=== PATIENT | female | born 1970 | race Caucasian/White ===

== ENCOUNTER 2018-01-02 01:27 | Outpatient (CLI) | payer MEDICARE, MEDICAID, SELFPAY ==
--- NOTE | 2018-01-02 12:51 | DI.RAD_ITS ---
SYMPTOM/DIAGNOSIS: RT KNEE PAIN, M25.561 RIGHT KNEE: Comparison is made with 12/30/15. There is moderate narrowing of the medial femoral tibial joint space and periarticular spurring. Spurring is also seen laterally and at the tibial spines. Patellofemoral spurring is also seen. IMPRESSION: Degenerative changes greatest at the medial femoral tibial joint.
== END 2018-01-02 01:47 ==
PROVIDERS: PCP Nurse Practitioner; Visit Provider Nurse Practitioner
DX: M25.561 Pain in right knee (principal); M17.11 Unilateral primary osteoarthritis, right knee
CPT/HCPCS: 73562

== ENCOUNTER 2018-02-10 13:18 | Emergency (ER) | payer MEDICARE, MEDICAID, SELFPAY ==
--- NOTE | 2018-02-10 13:28 | NUR.NOTE ---
MD Callahan at the bedside.
[2018-02-10 13:29] VITALS: BP 169/113; PULSE 89; RESP 18; TEMP 36.6; O2SAT 100
--- NOTE | 2018-02-10 13:35 | W.ED.GENAD ---
Discharge Plan Disposition Patient Disposition: HOME Condition: Stable Discharge Details Chief Complaint: PsychEval Clinical Impression: Depression Primary Care Provider: Renetta Bella ED Provider: Gardenia Callahan Home Meds and New Rx's Prescriptions: Continue bupropion HCl [Wellbutrin SR] 150 MG tablet extended release 12 hr 300 mg PO DAILY RF: 0 trazodone 100 MG tablet 200 mg PO HS RF: 0 hydrocodone-acetaminophen [[place]] 1 EACH tablet 1 ea PO Q6H PRN PRNRF: 0 albuterol sulfate [ProAir HFA] 200 PUFF HFA aerosol inhaler 2 puff Inhalation Q4H PRN PRNRF: 0 duloxetine [Cymbalta] 30 MG capsule,delayed release(DR/EC) 30 mg PO DAILY RF: 0 duloxetine [Cymbalta] 60 MG capsule,delayed release(DR/EC) 60 mg PO DAILY RF: 0 lamotrigine 250 MG tablet extended release 24hr 300 mg PO DAILY RF: 0 acetaminophen [Tylenol Extra Strength] 500 MG tablet 500 mg PO PRN PRNRF: 0 epinephrine [EpiPen 2-Mikhail] 0.3 MG/0.3 ML auto-injector 0.3 mg IM Q6H PRN PRNQty: 6 RF: 10 cyclobenzaprine 10 MG tablet 10 mg PO TID PRN PRNQty: 10 RF: 0 Discharge Instructions Instructions: Depression (ED) Additional Instructions: Take your regular medications as directed. Follow-up with your scheduled appointment with your therapist tomorrow. Follow-up immediately with Maylin from mental health with any questions or concerns. Call 911 or return immediately to the emergency department with any worsening or new concerning symptoms. Discharge Data Discharge Date/Time-TO BE ENTERED AT DEPARTURE: 02/10/18 16:21 Discharge Physician: Gardneia Callahan Medical Decision Making 47yo F w/ a h/o anxiety, depression and previous suicide attempts who presents with suicidal ideation with plan to swallow pills after argument with partner last night. BP hypertensive, no h/o HTN, may be due to pt distress, will recheck. No acute findings on exam. Will check screening labs, uds, ucg and call mental health and sitter. 1600 -- labs reviewed and unremarkable. UDS positive for THC. Vitals within normal limits. Mental health evaluated patient at bedside and partner is now here and patient and partner feel good to go home. Patient is denying any suicidal ideation. She states she felt emotional after her argument but has no intentions to harm or kill herself. She denies any weapons at home. She states she has no intent or plan to harm herself. Patient and partner state they feel safe to go home. Discussed with mental health and they state that patient has a dissociative disorder and when she has a trigger such as an argument this may cause her to regress back to past feelings. Pt appears calm and relaxed and is smiling with partner at bedside. Pt has an appointment with her psychotherapist Jennifer Martinez tomorrow. Pt has contact information for Maylin from [facility] if she needs urgent evaluation. She is instructed to call 911 or return immediately to the ER with any worsening or return of symptoms. HPI General Mode of arrival: ambulatory. Date/Time Provider Initiated Documentation: 02/10/18 13:20. Limitations to Documentation: no limitations. Information obtained by: patient. HPI Narrative: Pt is a 47yo F who presents to the ED w/ suicidal ideation. Pt states she had an argument last night and states her partner said hurtful things to me which caused her to want to swallow a bunch of pills today to kill herself. Pt admits to 2 previous suicide attempts at age 9 and in the 20s with previous intentional pill overdose. Pt denies any alcohol or drug use. Pt states she otherwise has been eating and drinking well. Related Data Home Medications Medication Instructions Recorded Confirmed albuterol sulfate [ProAir HFA] 2 puff INHALATION Q4H PRN PRN 07/23/15 02/10/18 bupropion HCl [Wellbutrin SR] 300 mg PO DAILY 07/23/15 02/10/18 duloxetine [Cymbalta] 30 mg PO DAILY 07/23/15 02/10/18 duloxetine [Cymbalta] 60 mg PO DAILY 07/23/15 02/10/18 hydrocodone-acetaminophen [[place]] 1 ea PO Q6H PRN PRN 07/23/15 02/10/18 lamotrigine 300 mg PO DAILY 07/23/15 02/10/18 trazodone 200 mg PO HS 07/23/15 02/10/18 acetaminophen [Tylenol Extra 500 mg PO PRN PRN 07/27/15 02/10/18 Strength] epinephrine [EpiPen 2-Mikhail] 0.3 mg IM Q6H PRN PRN #6 ml 09/26/15 02/10/18 cyclobenzaprine 10 mg PO TID PRN PRN #10 tab 01/13/16 02/10/18 Previous Rx's Medication Instructions Recorded epinephrine [EpiPen 2-Mikhail] 0.3 mg IM Q6H PRN PRN #6 ml 09/26/15 cyclobenzaprine 10 mg PO TID PRN PRN #10 tab 01/13/16 Allergies Allergy/AdvReac Type Severity Reaction Status Date / Time venom-honey bee Allergy Severe Anaphylaxsi Unverified 02/10/18 13:30 s naproxen [From Naprosyn] Allergy Unknown Unverified 02/10/18 13:30 aspirin Allergy Unverified 02/10/18 13:30 General Stated Complaint: PsychEval ABDOUL: 2 Review of Systems Review of Systems All systems reviewed & are unremarkable except as noted in HPI and below Constitutional Reports as per HPI, Denies chills and Denies fever(s) Eyes Denies blurry vision ENT Denies dizziness, Denies sore throat and Denies throat swelling Cardiovascular Denies chest pain and Denies dyspnea Respiratory Denies dyspnea Gastrointestinal Denies abdominal pain, Denies diarrhea and Denies vomiting Genitourinary Denies hematuria and Denies dysuria Musculoskeletal Denies back pain and Denies numbness Integumentary/Breasts Denies lesions and Denies rash Neurologic Denies dizziness and Denies numbness Psychiatric Denies auditory hallucinations, Denies visual hallucinations and Reports suicidal ideation Allergic/Immunologic Denies throat swelling [facility] Social History Smoking/Tobacco Use Status: Former Tobacco Use Social History Smoking/Tobacco Use Status: Former Tobacco Use Exam Const General: cooperative, healthy appearing and other (tearful, crying) Orientation: alert, awake and oriented x3 HENMT Head: normal to inspection Ears: hearing grossly normal bilaterally and external ears normal General nose exam: external nose normal Face and sinus: normal facial exam Mouth: oral mucosae normal Eyes General: appearance normal, both eyes and all related structures Eyelids: eyelids normal Pupils: PERRL EOM: EOM intact bilaterally Neck Neck: normal visual inspection Lymphatic: no lymphadenopathy noted Chest Chest: normal inspection of the chest Resp Effort & Inspection: normal respiratory effort and able to speak in complete sentences Auscultation: clear to auscultation bilaterally Cardio Rate: regular rate Rhythm: regular rhythm GI Inspection: normal to inspection Skin General skin exam: no rashes or lesions noted Neuro General: alert and awake Cognition: normal cognition Speech: speech normal Gait: normal gait Motor: muscle tone normal throughout Sensory Exam: no sensory deficits noted Extrem General: normal to inspection, full ROM and normal capillary refill Psych Appearance: grossly normal Mental Status: mental status grossly normal Speech and Movement: speech and movement normal Affect: sad Thought Process: normal Course Laboratory Tests Range/Units 02/10/18 02/10/18 02/10/18 13:45 13:45 13:45 WBC (4.4-10.8) k/cumm 9.11 RBC (4.00-5.20) m/cumm 4.35 Hgb (12.0-15.5) g/dL 13.3 Hct (36.0-46.0) % 39.8 MCV (80-95) fL 91.5 MCH (27.0-33.0) pg 30.6 MCHC (32.0-36.0) g/dL 33.4 RDW (11.7-14.6) % 13.2 Plt Count (130-400) x1000/uL 256 MPV (8.0-11.0) fL 11.6 H Immature Gran % 0.2 Neutrophils % 69.7 Lymphocytes % 21.0 Monocytes % 8.5 Eosinophils % 0.3 Basophils % 0.3 Absolute Neutrophils (1.2-6.7) k/cumm 6.35 Absolute Lymphocytes (1.2-3.4) k/cumm 1.91 Absolute Monocytes (0.11-0.7) k/cumm 0.77 H Absolute Eosinophils (0.0-0.7) k/cumm 0.03 Absolute Basophils (0.0-0.2) k/cumm 0.03 Sodium (136-145) mmol/L 138 Potassium (3.5-5.1) mmol/L 3.7 Chloride (98-107) mmol/L 101 Carbon Dioxide (21.0-32.0) mmol/L 25.3 Anion Gap (3-11) mmol/L 11.7 H BUN (7-18) mg/dL 12 Creatinine (0.55-1.02) mg/dL 0.76 Estimated GFR/1.73 m2 (mL/min/1.73m2) >= 60.00 Glucose (70-100) mg/dL 121 H Calcium (8.5-10.1) mg/dL 8.6 Urine Color (Yellow) Yellow Urine Clarity Clear Urine pH (5-8) 7.0 Ur Specific [place] (1.005-1.025) 1.010 Urine Protein (Negative) mg/dL Negative Urine Ketones (Negative) mg/dL Negative Urine Blood (Negative) Trace-intact H Urine Nitrite (Negative) Negative Urine Bilirubin (Negative) Negative Urine Urobilinogen (Up TO 0.2) EU/dL 0.2 Ur Leukocyte Esterase (Negative) Negative Urine RBC (0-2) 0-2 Urine WBC (0-5) HPF Negative Ur Epithelial Cells (Negative) HPF Many Urine Crystals (Negative) HPF Negative Urine Bacteria (Negative) HPF Few Urine Casts (Negative) LPF Negative Urine Mucus (Negative) Trace Ur Culture Indicated? No Urine Glucose (Negative) mg/dL Negative Urine Opiates Screen (Negative) Urine Methadone Screen (Negative) Ur Barbiturates Screen (Negative) Ur Tricyclics Screen (Negative) Ur Amphetamines Screen (Negative) U Benzodiazepines Scrn (Negative) Urine Cocaine Screen (Negative) Ur THC Screen (Negative) Ethyl Alcohol (<3) mg/dL < 3.0 Range/Units 02/10/18 13:45 WBC (4.4-10.8) k/cumm RBC (4.00-5.20) m/cumm Hgb (12.0-15.5) g/dL Hct (36.0-46.0) % MCV (80-95) fL MCH (27.0-33.0) pg MCHC (32.0-36.0) g/dL RDW (11.7-14.6) % Plt Count (130-400) x1000/uL MPV (8.0-11.0) fL Immature Gran % Neutrophils % Lymphocytes % Monocytes % Eosinophils % Basophils % Absolute Neutrophils (1.2-6.7) k/cumm Absolute Lymphocytes (1.2-3.4) k/cumm Absolute Monocytes (0.11-0.7) k/cumm Absolute Eosinophils (0.0-0.7) k/cumm Absolute Basophils (0.0-0.2) k/cumm Sodium (136-145) mmol/L Potassium (3.5-5.1) mmol/L Chloride (98-107) mmol/L Carbon Dioxide (21.0-32.0) mmol/L Anion Gap (3-11) mmol/L BUN (7-18) mg/dL Creatinine (0.55-1.02) mg/dL Estimated GFR/1.73 m2 (mL/min/1.73m2) Glucose (70-100) mg/dL Calcium (8.5-10.1) mg/dL Urine Color (Yellow) Urine Clarity Urine pH (5-8) Ur Specific [place] (1.005-1.025) Urine Protein (Negative) mg/dL Urine Ketones (Negative) mg/dL Urine Blood (Negative) Urine Nitrite (Negative) Urine Bilirubin (Negative) Urine Urobilinogen (Up TO 0.2) EU/dL Ur Leukocyte Esterase (Negative) Urine RBC (0-2) Urine WBC (0-5) HPF Ur Epithelial Cells (Negative) HPF Urine Crystals (Negative) HPF Urine Bacteria (Negative) HPF Urine Casts (Negative) LPF Urine Mucus (Negative) Ur Culture Indicated? Urine Glucose (Negative) mg/dL Urine Opiates Screen (Negative) Negative Urine Methadone Screen (Negative) Negative Ur Barbiturates Screen (Negative) Negative Ur Tricyclics Screen (Negative) Negative Ur Amphetamines Screen (Negative) Negative U Benzodiazepines Scrn (Negative) Negative Urine Cocaine Screen (Negative) Negative Ur THC Screen (Negative) Positive Ethyl Alcohol (<3) mg/dL Vital Signs Temperature 97.9 F 02/10/18 13:29 Pulse 89 02/10/18 13:29 Respiratory Rate 18 02/10/18 13:29 Blood Pressure 169/113 H 02/10/18 13:29 Pulse Oximetry 100 02/10/18 13:29 Temperature 97.9 F 02/10/18 13:29 Temperature Source Temporal Artery Scan 02/10/18 13:29 Pulse 89 02/10/18 13:29 Respiratory Rate 18 02/10/18 13:29 Respiratory Effort 02/10/18 13:31 Blood Pressure 169/113 H 02/10/18 13:29 Blood Pressure Position Sitting 02/10/18 13:29 Pulse Oximetry 100 02/10/18 13:29 Oxygen Delivery Method Room Air 02/10/18 13:29 Oxygen Flow Rate 0 02/10/18 13:29
--- NOTE | 2018-02-10 13:38 | ED.GENADUL_ITS ---
Discharge Plan Disposition Patient Disposition: HOME Condition: Stable Discharge Details Chief Complaint: PsychEval Clinical Impression: Depression Primary Care Provider: Renetta Bella ED Provider: Gardenia Callahan Home Meds and New Rx's Prescriptions: Continue bupropion HCl [Wellbutrin SR] 150 MG tablet extended release 12 hr 300 mg PO DAILY RF: 0 trazodone 100 MG tablet 200 mg PO HS RF: 0 hydrocodone-acetaminophen [[place]] 1 EACH tablet 1 ea PO Q6H PRN PRNRF: 0 albuterol sulfate [ProAir HFA] 200 PUFF HFA aerosol inhaler 2 puff Inhalation Q4H PRN PRNRF: 0 duloxetine [Cymbalta] 30 MG capsule,delayed release(DR/EC) 30 mg PO DAILY RF: 0 duloxetine [Cymbalta] 60 MG capsule,delayed release(DR/EC) 60 mg PO DAILY RF: 0 lamotrigine 250 MG tablet extended release 24hr 300 mg PO DAILY RF: 0 acetaminophen [Tylenol Extra Strength] 500 MG tablet 500 mg PO PRN PRNRF: 0 epinephrine [EpiPen 2-Mikhail] 0.3 MG/0.3 ML auto-injector 0.3 mg IM Q6H PRN PRNQty: 6 RF: 10 cyclobenzaprine 10 MG tablet 10 mg PO TID PRN PRNQty: 10 RF: 0 Discharge Instructions Instructions: Depression (ED) Additional Instructions: Take your regular medications as directed. Follow-up with your scheduled appointment with your therapist tomorrow. Follow- up immediately with Maylin from mental health with any questions or concerns. Call 911 or return immediately to the emergency department with any worsening or new concerning symptoms. Discharge Data Discharge Date/Time-TO BE ENTERED AT DEPARTURE: 02/10/18 16:21 Discharge Physician: Gardenia Callahan Medical Decision Making 47yo F w/ a h/o anxiety, depression and previous suicide attempts who presents with suicidal ideation with plan to swallow pills after argument with partner last night. BP hypertensive, no h/o HTN, may be due to pt distress, will recheck. No acute findings on exam. Will check screening labs, uds, ucg and call mental health and sitter. 1600 -- labs reviewed and unremarkable. UDS positive for THC. Vitals within normal limits. Mental health evaluated patient at bedside and partner is now here and patient and partner feel good to go home. Patient is denying any suicidal ideation. She states she felt emotional after her argument but has no intentions to harm or kill herself. She denies any weapons at home. She states she has no intent or plan to harm herself. Patient and partner state they feel safe to go home. Discussed with mental health and they state that patient has a dissociative disorder and when she has a trigger such as an argument this may cause her to regress back to past feelings. Pt appears calm and relaxed and is smiling with partner at bedside. Pt has an appointment with her psychotherapist Jennifer Martinez tomorrow. Pt has contact information for Maylin from [facility] if she needs urgent evaluation. She is instructed to call 911 or return immediately to the ER with any worsening or return of symptoms. HPI General Mode of arrival: ambulatory . Date/Time Provider Initiated Documentation: 02/10/18 13:20 . Limitations to Documentation: no limitations . Information obtained by: patient . HPI Narrative: Pt is a 47yo F who presents to the ED w/ suicidal ideation. Pt states she had an argument last night and states her partner said hurtful things to me which caused her to want to swallow a bunch of pills today to kill herself. Pt admits to 2 previous suicide attempts at age 9 and in the 20s with previous intentional pill overdose. Pt denies any alcohol or drug use. Pt states she otherwise has been eating and drinking well. Related Data Home Medications Medication Instructions Recorded Confirmed albuterol sulfate [ProAir HFA] 2 puff INHALATION Q4H PRN PRN 07/23/15 02/10/18 bupropion HCl [Wellbutrin SR] 300 mg PO DAILY 07/23/15 02/10/18 duloxetine [Cymbalta] 30 mg PO DAILY 07/23/15 02/10/18 duloxetine [Cymbalta] 60 mg PO DAILY 07/23/15 02/10/18 hydrocodone-acetaminophen [[place]] 1 ea PO Q6H PRN PRN 07/23/15 02/10/18 lamotrigine 300 mg PO DAILY 07/23/15 02/10/18 trazodone 200 mg PO HS 07/23/15 02/10/18 acetaminophen [Tylenol Extra 500 mg PO PRN PRN 07/27/15 02/10/18 Strength] epinephrine [EpiPen 2-Mikhail] 0.3 mg IM Q6H PRN PRN #6 ml 09/26/15 02/10/18 cyclobenzaprine 10 mg PO TID PRN PRN #10 tab 01/13/16 02/10/18 Previous Rx's Medication Instructions Recorded epinephrine [EpiPen 2-Mikhail] 0.3 mg IM Q6H PRN PRN #6 ml 09/26/15 cyclobenzaprine 10 mg PO TID PRN PRN #10 tab 01/13/16 Allergies Allergy/AdvReac Type Severity Reaction Status Date / Time venom-honey bee Allergy Severe Anaphylaxsi Unverified 02/10/18 13:30 s naproxen [From Naprosyn] Allergy Unknown Unverified 02/10/18 13:30 aspirin Allergy Unverified 02/10/18 13:30 General Stated Complaint: PsychEval ABDOUL: 2 Review of Systems Review of Systems All systems reviewed & are unremarkable except as noted in HPI and below Constitutional Reports as per HPI, Denies chills and Denies fever(s) Eyes Denies blurry vision ENT Denies dizziness, Denies sore throat and Denies throat swelling Cardiovascular Denies chest pain and Denies dyspnea Respiratory Denies dyspnea Gastrointestinal Denies abdominal pain, Denies diarrhea and Denies vomiting Genitourinary Denies hematuria and Denies dysuria Musculoskeletal Denies back pain and Denies numbness Integumentary/Breasts Denies lesions and Denies rash Neurologic Denies dizziness and Denies numbness Psychiatric Denies auditory hallucinations, Denies visual hallucinations and Reports suicidal ideation Allergic/Immunologic Denies throat swelling [facility] Social History Smoking/Tobacco Use Status: Former Tobacco Use Social History Smoking/Tobacco Use Status: Former Tobacco Use Exam Const General: cooperative, healthy appearing and other (tearful, crying) Orientation: alert, awake and oriented x3 HENMT Head: normal to inspection Ears: hearing grossly normal bilaterally and external ears normal General nose exam: external nose normal Face and sinus: normal facial exam Mouth: oral mucosae normal Eyes General: appearance normal, both eyes and all related structures Eyelids: eyelids normal Pupils: PERRL EOM: EOM intact bilaterally Neck Neck: normal visual inspection Lymphatic: no lymphadenopathy noted Chest Chest: normal inspection of the chest Resp Effort & Inspection: normal respiratory effort and able to speak in complete sentences Auscultation: clear to auscultation bilaterally Cardio Rate: regular rate Rhythm: regular rhythm GI Inspection: normal to inspection Skin General skin exam: no rashes or lesions noted Neuro General: alert and awake Cognition: normal cognition Speech: speech normal Gait: normal gait Motor: muscle tone normal throughout Sensory Exam: no sensory deficits noted Extrem General: normal to inspection, full ROM and normal capillary refill Psych Appearance: grossly normal Mental Status: mental status grossly normal Speech and Movement: speech and movement normal Affect: sad Thought Process: normal Course Laboratory Tests Range/Units 02/10/18 02/10/18 02/10/18 13:45 13:45 13:45 WBC (4.4-10.8) k/cumm 9.11 RBC (4.00-5.20) m/cumm 4.35 Hgb (12.0-15.5) g/dL 13.3 Hct (36.0-46.0) % 39.8 MCV (80-95) fL 91.5 MCH (27.0-33.0) pg 30.6 MCHC (32.0-36.0) g/dL 33.4 RDW (11.7-14.6) % 13.2 Plt Count (130-400) x1000/uL 256 MPV (8.0-11.0) fL 11.6 H Immature Gran % 0.2 Neutrophils % 69.7 Lymphocytes % 21.0 Monocytes % 8.5 Eosinophils % 0.3 Basophils % 0.3 Absolute Neutrophils (1.2-6.7) k/cumm 6.35 Absolute Lymphocytes (1.2-3.4) k/cumm 1.91 Absolute Monocytes (0.11-0.7) k/cumm 0.77 H Absolute Eosinophils (0.0-0.7) k/cumm 0.03 Absolute Basophils (0.0-0.2) k/cumm 0.03 Sodium (136-145) mmol/L 138 Potassium (3.5-5.1) mmol/L 3.7 Chloride (98-107) mmol/L 101 Carbon Dioxide (21.0-32.0) mmol/L 25.3 Anion Gap (3-11) mmol/L 11.7 H BUN (7-18) mg/dL 12 Creatinine (0.55-1.02) mg/dL 0.76 Estimated GFR/1.73 m2 (mL/min/1.73m2) >= 60.00 Glucose (70-100) mg/dL 121 H Calcium (8.5-10.1) mg/dL 8.6 Urine Color (Yellow) Yellow Urine Clarity Clear Urine pH (5-8) 7.0 Ur Specific [place] (1.005-1.025) 1.010 Urine Protein (Negative) mg/dL Negative Urine Ketones (Negative) mg/dL Negative Urine Blood (Negative) Trace-intact H Urine Nitrite (Negative) Negative Urine Bilirubin (Negative) Negative Urine Urobilinogen (Up TO 0.2) EU/dL 0.2 Ur Leukocyte Esterase (Negative) Negative Urine RBC (0-2) 0-2 Urine WBC (0-5) HPF Negative Ur Epithelial Cells (Negative) HPF Many Urine Crystals (Negative) HPF Negative Urine Bacteria (Negative) HPF Few Urine Casts (Negative) LPF Negative Urine Mucus (Negative) Trace Ur Culture Indicated? No Urine Glucose (Negative) mg/dL Negative Urine Opiates Screen (Negative) Urine Methadone Screen (Negative) Ur Barbiturates Screen (Negative) Ur Tricyclics Screen (Negative) Ur Amphetamines Screen (Negative) U Benzodiazepines Scrn (Negative) Urine Cocaine Screen (Negative) Ur THC Screen (Negative) Ethyl Alcohol (<3) mg/dL < 3.0 Range/Units 02/10/18 13:45 WBC (4.4-10.8) k/cumm RBC (4.00-5.20) m/cumm Hgb (12.0-15.5) g/dL Hct (36.0-46.0) % MCV (80-95) fL MCH (27.0-33.0) pg MCHC (32.0-36.0) g/dL RDW (11.7-14.6) % Plt Count (130-400) x1000/uL MPV (8.0-11.0) fL Immature Gran % Neutrophils % Lymphocytes % Monocytes % Eosinophils % Basophils % Absolute Neutrophils (1.2-6.7) k/cumm Absolute Lymphocytes (1.2-3.4) k/cumm Absolute Monocytes (0.11-0.7) k/cumm Absolute Eosinophils (0.0-0.7) k/cumm Absolute Basophils (0.0-0.2) k/cumm Sodium (136-145) mmol/L Potassium (3.5-5.1) mmol/L Chloride (98-107) mmol/L Carbon Dioxide (21.0-32.0) mmol/L Anion Gap (3-11) mmol/L BUN (7-18) mg/dL Creatinine (0.55-1.02) mg/dL Estimated GFR/1.73 m2 (mL/min/1.73m2) Glucose (70-100) mg/dL Calcium (8.5-10.1) mg/dL Urine Color (Yellow) Urine Clarity Urine pH (5-8) Ur Specific [place] (1.005-1.025) Urine Protein (Negative) mg/dL Urine Ketones (Negative) mg/dL Urine Blood (Negative) Urine Nitrite (Negative) Urine Bilirubin (Negative) Urine Urobilinogen (Up TO 0.2) EU/dL Ur Leukocyte Esterase (Negative) Urine RBC (0-2) Urine WBC (0-5) HPF Ur Epithelial Cells (Negative) HPF Urine Crystals (Negative) HPF Urine Bacteria (Negative) HPF Urine Casts (Negative) LPF Urine Mucus (Negative) Ur Culture Indicated? Urine Glucose (Negative) mg/dL Urine Opiates Screen (Negative) Negative Urine Methadone Screen (Negative) Negative Ur Barbiturates Screen (Negative) Negative Ur Tricyclics Screen (Negative) Negative Ur Amphetamines Screen (Negative) Negative U Benzodiazepines Scrn (Negative) Negative Urine Cocaine Screen (Negative) Negative Ur THC Screen (Negative) Positive Ethyl Alcohol (<3) mg/dL Vital Signs Temperature 97.9 F 02/10/18 13:29 Pulse 89 02/10/18 13:29 Respiratory Rate 18 02/10/18 13:29 Blood Pressure 169/113 H 02/10/18 13:29 Pulse Oximetry 100 02/10/18 13:29 Temperature 97.9 F 02/10/18 13:29 Temperature Source Temporal Artery Scan 02/10/18 13:29 Pulse 89 02/10/18 13:29 Respiratory Rate 18 02/10/18 13:29 Respiratory Effort 02/10/18 13:31 Blood Pressure 169/113 H 02/10/18 13:29 Blood Pressure Position Sitting 02/10/18 13:29 Pulse Oximetry 100 02/10/18 13:29 Oxygen Delivery Method Room Air 02/10/18 13:29 Oxygen Flow Rate 0 02/10/18 13:29
--- NOTE | 2018-02-10 13:45 | NUR.NOTE ---
Pt. is very cooperative, ambulated to restroom with this RN, steady gait. Changed into blue scrubs and belongings secured per protocol. Pt. aware of plan for one to one sitter.
[2018-02-10 13:51] LABS: Bilirubin Negative (Negative); Blood Trace-intact (Negative); Clarity Clear; Glucose Negative (Negative); Ketones Negative (Negative); Leukocyte Esterase Negative (Negative); Nitrite Negative (Negative); Urobilinogen 0.2 EU/dL (Up TO 0.2)
[2018-02-10 13:56] LABS: Abs Immature Grans 0.02 k/cumm (0.0-0.09); Absolute Basophil Count 0.03 k/cumm (0.0-0.2); Absolute Eosinophil Count 0.03 k/cumm (0.0-0.7); Absolute Lymphocyte Count 1.91 k/cumm (1.2-3.4); Absolute Monocyte Count 0.77 k/cumm (0.11-0.7); Absolute Neutrophil Count 6.35 k/cumm (1.2-6.7); Basophils % 0.3; Eosinophils % 0.3; HCT 39.8 % (36.0-46.0); HGB 13.3 g/dL (12.0-15.5); Immature Grans % 0.2; Mean Corp. HGB Concentration 33.4 g/dL (32.0-36.0); Mean Corpuscular Hemoglobin 30.6 pg (27.0-33.0); Mean Corpuscular Volume 91.5 fL (80-95); Mean Platelet Volume 11.6 fL (8.0-11.0); Monocytes % 8.5; Neutrophils % 69.7; Platelet Count 256 x1000/uL (130-400); RBC 4.35 m/cumm (4.00-5.20); RBC Distribution Width 13.2 % (11.7-14.6); White Blood Cell Count 9.11 k/cumm (4.4-10.8)
[2018-02-10 14:03] LABS: *AMPHETAMINES SCREEN URINE Negative (Negative); *BARBITURATES SCREEN URINE Negative (Negative); *BENZODIAZEPINES SCREEN URINE Negative (Negative); Cannabinoids THC POSITIVE (Negative); Cocaine Screen,Urine Negative (Negative); METHADONE URINE SCREEN Negative (Negative); OPIATES URINE SCREEN Negative (Negative)
[2018-02-10 14:04] LABS: Anion Gap 11.7 mmol/L (3-11); BUN 12 mg/dL (7-18); Bacteria Few HPF (Negative); C & S Indicated? No; CO2 25.3 mmol/L (21.0-32.0); CREATININE 0.76 mg/dL (0.55-1.02); Calcium 8.6 mg/dL (8.5-10.1); Casts Negative LPF (Negative); Chloride 101 mmol/L (98-107); Crystals Negative HPF (Negative); Epithelial Cells Many HPF (Negative); Glucose 121 mg/dL (70-100); Mucus Trace (Negative); Potassium 3.7 mmol/L (3.5-5.1); RBC 0-2 (0-2); Sodium 138 mmol/L (136-145); WBC Negative HPF (0-5)
--- NOTE | 2018-02-10 14:08 | NUR.NOTE ---
Mental Health is at the bedside.
[2018-02-10 14:10] LABS: Tricyclic Antidepressants Negative (Negative)
[2018-02-10 14:24] LABS: ETHANOL BLOOD < 3.0 mg/dL (<3)
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
[2018-02-10 16:07] VITALS: BP 131/77; PULSE 71; RESP 18; TEMP 36.7; O2SAT 96
--- NOTE | 2018-02-10 16:08 | NUR.NOTE ---
Pt. given belongings, pt. continues to be calm and cooperative. Partner is apparently appropriate and supportive is with patient.
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
== END 2018-02-10 16:21 | disposition home or self-care (01) ==
PROVIDERS: Emergency Provider Physician Assistant; PCP Nurse Practitioner
DX: F41.8 Other specified anxiety disorders (principal); R45.851 Suicidal ideations; Z91.5 Personal history of self-harm; R03.0 Elevated blood-pressure reading, without diagnosis of hypertension
CPT/HCPCS: 36415; 80048; 80307; 99285; 80320; 81003; 81015; 85025; 99284

== ENCOUNTER 2019-02-04 16:41 | Outpatient (REF) | payer MEDICARE, MEDICAID, SELFPAY ==
--- NOTE | 2019-02-04 15:45 | PAPFT_PTH ---
PATIENT: Genia Isaac LOC: [facility] U#:[id number] AGE/SX: 48/F ROOM: RE02/04/[address]: Gricelda Dexter NP : 1970 BED: DIS: 02/04/2019 SPEC #: [id number] RECD: 02/04/19 18:04 STATUS: MALCOLM KELLY #: [id number] CLOVER: 02/04/19 15:[address]: Gricelda Dexter NP DEPT: [facility] Cytology RECD BY: Brielle Cleary ENTERED: 02/04/19 18:05 SP TYPE: PAPFT EMMA DR: Radhika Hancock, DO Tissues: 1 - CX/ENDOCX FOR PAP SMEARS Procedures: PAP THIN PREP/UVM Screening HPV DNA PROBE Comments: [id number]
== END 2019-02-04 17:01 ==
LOC: LBN 16:41
PROVIDERS: PCP Student in an Organized Health Care Education/Training Program; Visit Provider Nurse Practitioner Women's Health
DX: Z12.4 Encounter for screening for malignant neoplasm of cervix (principal); Z11.51 Encounter for screening for human papillomavirus (HPV)
CPT/HCPCS: 88142; 87624

== ENCOUNTER 2019-10-28 16:49 | Emergency (ER) | payer MEDICARE, MEDICAID, SELFPAY ==
[2019-10-28] VITALS (24 sets, daily range): BP systolic 122–168; BP diastolic 74–98; PULSE 97–105; RESP 16–32; TEMP 37.2; O2SAT 93–97
--- NOTE | 2019-10-28 16:45 | RT.EKG_ITS ---
APPROVED REPORT Exam: Resting ECG Patient Location: E HR:98 bpm ECG Measurements Heart Rate 98 AXIS TN 139 P 63 QRSd 86 QRS 63 QT 336 T 38 QTc 430 Conclusion Sinus rhythm...normal P axis, V-rate 60- 99 Probable left atrial enlargement...P >50mS, <-0.10mV V1
--- NOTE | 2019-10-28 17:00 | DI.CT_ITS ---
EXAM: CT HEAD CERVICAL SPINE WO CLINICAL HISTORY: seizure, fall. TECHNIQUE: Imaging Protocol: Axial computed tomography images with coronal and sagittal reformatted images were created and reviewed COMPARISON: No exams were available for comparison FINDINGS: Head CT Ventricles and Extra axial spaces: Normal in size and morphology for the patient's age. Hemorrhage: None. Cerebral parenchyma: Normal. Midline shift: None. Brainstem/Cerebellum: Normal. Calvarium: Normal. Visualized Paranasal sinuses/Mastoids: Clear. Cervical Spine CT BONES: Vertebral body heights are maintained. There is no evidence of acute fracture. Degenerative disc changes and facet degenerative changes are seen . SOFT TISSUES: No paraspinal hematoma. The airway appears intact. . IMPRESSION: Head CT: No acute abnormality. C-spine CT: Degenerative changes, no acute abnormality. Incidental RADIATION DOSE DELIVERED: LINK-TO-SR Total DLP DATA REPOSITORY: All CT scans at this facility are submitted to the National Radiology Data Registry (NRDR) Dose Index Registry (DIR) with the [employer] (ACR). RADIATION OPTIMIZATION: All CT scans at this facility use at least one of these dose optimization te chniques: automated exposure control; mA and/or kV adjustment per patient size (includes targeted exa ms where dose is matched to clinical indication); or iterative reconstruction.
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
[2019-10-28] MEDS: Normal Saline 1,000 ML 1000 ML IV (17:22)
[2019-10-28 17:28] LABS: Lactate 1.6 mmol/L (0.6-1.4)
[2019-10-28 17:29] LABS: BE (Venous) 3 mmol/L (-2-3); HCO3 (Venous) 28 mmol/L (23-28); O2 Sat (Venous) 91 %; TCO2 (Venous) 25 mmol/L (24-29); pCO2 (Venous) 44 mmHg (41-51); pH (Venous) 7.41 (7.31-7.41); pO2 (Venous) 56 mmHg
[2019-10-28 17:32] LABS: Abs Immature Grans 0.02 10^3/uL (0.0-0.06); Absolute Basophil Count 0.03 10^3/uL (0.0-0.2); Absolute Eosinophil Count 0.08 10^3/uL (0.0-0.7); Absolute Lymphocyte Count 1.79 10^3/uL (1.2-3.4); Absolute Monocyte Count 0.82 10^3/uL (0.1-0.8); Absolute Neutrophil Count 6.72 10^3/uL (1.2-6.7); Basophils % 0.3; Eosinophils % 0.8; HCT 41.1 % (36.0-46.0); HGB 13.7 g/dL (11.2-15.7); Immature Grans % 0.2; Lymphocytes % 18.9; MCH 30.7 pg (27.0-33.0); MCHC 33.3 % (32.0-36.0); MCV 92.2 fL (80-95); MPV 12.2 fL (8.0-11.0); Monocytes % 8.7; Neutrophils % 71.1; Nucleated RBC 0 %; Platelet Count 247 10^3/uL (130-400); RBC 4.46 10^6/uL (3.93-5.22); RDW 13.2 % (11.7-14.6); RDW-SD 44.9 fL; WBC 9.46 10^3/uL (4.4-10.8)
[2019-10-28 17:45] LABS: Prothrombin Time 10.1 sec (9.3-11.0)
[2019-10-28 17:50] LABS: Bilirubin, Direct 0.06 mg/dL (0.00-0.20); Bilirubin, Total 0.2 mg/dL (0.2-1.0)
[2019-10-28 17:52] LABS: Salicylate 2.9 mg/dL (2.8-20.0)
[2019-10-28 17:56] LABS: ALT 21 U/L (14-59); AST 12 U/L (15-37); Albumin 3.5 g/dL (3.4-5.0); Alkaline Phosphatase 80 U/L (46-116); Anion Gap 8.9 mmol/L (3-11); BUN 11 mg/dL (7-18); Bilirubin, Total 0.2 mg/dL (0.2-1.0); CO2 28.1 mmol/L (21.0-32.0); CREATININE 0.89 mg/dL (0.55-1.02); Chloride 102 mmol/L (98-107); Creatine Kinase 74 U/L (26-192); Glucose 119 mg/dL (74-106); Magnesium 1.9 mg/dL (1.8-2.4); Sodium 139 mmol/L (136-145); TSH (W/Ref FT4) 2.32 uIU/mL (0.36-3.74); Total Protein 7.6 g/dL (6.4-8.2)
--- NOTE | 2019-10-28 18:01 | DI.VRAD_ITS ---
PROCEDURE INFORMATION: Exam: CT Head Without Contrast Exam date and time: 10/28/2019 5:01 PM Age: 49 years old Clinical indication: Other: Seizure, fall TECHNIQUE: Imaging protocol: Computed tomography of the head without contrast. Radiation optimization: All CT scans at this facility use at least one of these dose optimization techniques: automated exposure control; mA and/or kV adjustment per patient size (includes targeted exams where dose is matched to clinical indication); or iterative reconstruction. COMPARISON: No relevant images were readily available for comparison purposes. FINDINGS: Brain: No acute hemorrhage, infarct, or mass lesion. Ventricles: Ventricles and sulci are symmetric in appearance. No hydrocephalus. Bones/joints: No acute skull fracture. Sinuses: Clear paranasal sinuses. Mastoid air cells: Clear mastoid air cells. Orbits: Globes and orbits are intact. Soft tissues: Superficial soft tissues are unremarkable. Dental: Dental hardware. IMPRESSION: No acute intracranial process. PROCEDURE INFORMATION: Exam: CT Cervical Spine Without Contrast Exam date and time: 10/28/2019 5:01 PM Age: 49 years old Clinical indication: Other: Seizure, fall TECHNIQUE: Imaging protocol: Computed tomography images of the cervical spine without contrast. Radiation optimization: All CT scans at this facility use at least one of these dose optimization techniques: automated exposure control; mA and/or kV adjustment per patient size (includes targeted exams where dose is matched to clinical indication); or iterative reconstruction. COMPARISON: No relevant images were readily available for comparison purposes. FINDINGS: Vertebrae: Multilevel degenerative changes of the cervical spine are overall moderate in severity. Approximately 3 mm of anterolisthesis of C4 on C5 is likely degenerative. Vertebral body heights are well maintained. Loss of the normal lordotic curvature of the cervical spine may be positional and/or degenerative. Soft tissues: Limited evaluation of the cervical soft tissues is unremarkable. IMPRESSION: No acute fracture or dislocation of the cervical spine. Dictated and Authenticated by: Gee Gerard MD. Ordering:ANA Napier MD
[2019-10-28 18:06] LABS: ETHANOL BLOOD < 3.0 mg/dL (<3); Troponin I < 0.05 ng/mL (<0.06)
[2019-10-28] MEDS: LORazepam 2 MG/ML VIAL 1 MG IVP (18:15)
[2019-10-28] MEDS: Normal Saline Flush 10 ML SYR IVP (18:16)
[2019-10-28 18:19] LABS: Acetaminophen < 2 ug/mL (10-30)
--- NOTE | 2019-10-28 19:03 | NUR.NOTE ---
Nursing Note: PT care transferred to Waleska FISHER at this time. At the time of transfer the PT is alert and oriented, vitals stable.
[2019-10-28 19:21] LABS: Bilirubin Negative (Negative); Blood Trace-intact (Negative); Clarity Clear (Clear); Glucose Negative (Negative); Ketones Negative (Negative); Leukocyte Esterase Negative (Negative); Nitrite Negative (Negative); Specific Gravity 1.015 (1.005-1.025); Urobilinogen 0.2 EU/dL (Up TO 0.2)
[2019-10-28 19:31] LABS: Bacteria Negative HPF (Negative); C & S Indicated? No; Casts Negative LPF (Negative); Crystals Negative HPF (Negative); Epithelial Cells Negative HPF (Negative); Mucus Negative (Negative); Other Cells Negative (Negative); RBC 0-2 HPF (0-2); WBC Negative HPF (0-5)
--- NOTE | 2019-10-28 19:31 | NUR.NOTE ---
Nursing Note: Pts friend at bedside attempting reorient it.
[2019-10-28 19:36] LABS: *AMPHETAMINES SCREEN URINE Negative (Negative); *BARBITURATES SCREEN URINE Negative (Negative); *BENZODIAZEPINES SCREEN URINE POSITIVE (Negative); Cannabinoids THC POSITIVE (Negative); Cocaine Screen,Urine Negative (Negative); METHADONE URINE SCREEN Negative (Negative); OPIATES URINE SCREEN Negative (Negative); Tricyclic Antidepressants Negative (Negative)
== END 2019-10-28 19:55 | disposition home or self-care (01) ==
PROVIDERS: Emergency Provider Emergency Medicine; PCP Student in an Organized Health Care Education/Training Program
DX: F31.81 Bipolar II disorder (principal); F44.5 Conversion disorder with seizures or convulsions; F41.8 Other specified anxiety disorders
CPT/HCPCS: 36415; 36416; 80053; 80307; 82550; 82805; 82962; 93005; 96361; 96374; 99285; 70450; 72125; 80320; 80329; 81003; 81015; 82247; 82248; 83605; 83735; 84443; 84484; 85025; 85610; 85730; 93010; 99284; J2060

== ENCOUNTER 2019-12-11 04:24 | Outpatient (CLI) | payer MEDICARE, MEDICAID, SELFPAY ==
[2019-12-11 09:21] LABS: HCT 42.4 % (36.0-46.0); HGB 14.2 g/dL (11.2-15.7); MCH 31.1 pg (27.0-33.0); MCHC 33.5 % (32.0-36.0); MCV 92.8 fL (80-95); MPV 11.9 fL (8.0-11.0); Platelet Count 287 10^3/uL (130-400); RBC 4.57 10^6/uL (3.93-5.22); RDW 13.4 % (11.7-14.6); RDW-SD 45.5 fL; WBC 8.83 10^3/uL (4.4-10.8)
[2019-12-11 10:15] LABS: Anion Gap 6.6 mmol/L (3-11); BUN 17 mg/dL (7-18); CO2 27.4 mmol/L (21.0-32.0); CREATININE 0.77 mg/dL (0.55-1.02); Calculated LDL 129 mg/dL (<100); Chloride 103 mmol/L (98-107); Cholesterol 210 mg/dL (<200); Glucose 102 mg/dL (74-106); HDL Cholesterol 59 mg/dL (40-60); Potassium 4.5 mmol/L (3.5-5.1); Sodium 137 mmol/L (136-145); TSH (W/Ref FT4) 1.88 uIU/mL (0.36-3.74); Triglyceride 111 mg/dL (<150)
== END 2019-12-11 04:44 ==
PROVIDERS: PCP Student in an Organized Health Care Education/Training Program; Visit Provider Student in an Organized Health Care Education/Training Program
DX: E78.5 Hyperlipidemia, unspecified (principal); E86.0 Dehydration; F41.8 Other specified anxiety disorders; R53.83 Other fatigue; R21 Rash and other nonspecific skin eruption
CPT/HCPCS: 36415; 80048; 80061; 85027; 83735; 84443

== ENCOUNTER 2020-09-07 03:18 | Outpatient (CLI) | payer MEDICARE, MEDICAID, SELFPAY ==
[2020-09-07 09:06] LABS: Hemoglobin A1C 5.1 % (<5.7)
[2020-09-07 10:27] LABS: ALT 27 U/L (14-59); AST 16 U/L (15-37); Albumin 3.7 g/dL (3.4-5.0); Alkaline Phosphatase 101 U/L (46-116); Anion Gap 7.4 mmol/L (3-11); BUN 13 mg/dL (7-18); Bilirubin, Total 0.3 mg/dL (0.2-1.0); CO2 30.6 mmol/L (21.0-32.0); CREATININE 0.8 mg/dL (0.55-1.02); Calcium 9.3 mg/dL (8.5-10.1); Calculated LDL 139 mg/dL (<100); Chloride 103 mmol/L (98-107); Cholesterol 211 mg/dL (<200); Glucose 100 mg/dL (74-106); HDL Cholesterol 58 mg/dL (40-60); Potassium 4.9 mmol/L (3.5-5.1); Sodium 141 mmol/L (136-145); TSH 1.32 uIU/mL (0.36-3.74); Total Protein 7.1 g/dL (6.4-8.2); Triglyceride 72 mg/dL (<150)
[2020-09-09 23:40] LABS: 25-Hydroxy D Total 44 ng/mL; 25-Hydroxy D2 <4.0 ng/mL; 25-Hydroxy D3 44 ng/mL
== END 2020-09-07 03:19 | disposition home or self-care (01) ==
LOC: LBO 03:18
PROVIDERS: PCP Student in an Organized Health Care Education/Training Program; Visit Provider Nurse Practitioner Psychiatric/Mental Health
DX: F31.5 Bipolar disorder, current episode depressed, severe, with psychotic features (principal); F50.81 Binge eating disorder; F44.81 Dissociative identity disorder; F43.12 Post-traumatic stress disorder, chronic; Z79.899 Other long term (current) drug therapy
CPT/HCPCS: 36415; 80053; 80061; 82306; 83036; 84443

== ENCOUNTER 2020-10-18 12:18 | Emergency (ER) | payer MEDICARE, MEDICAID, SELFPAY ==
[2020-10-18 12:20] VITALS: BP 160/75; PULSE 81; RESP 16; TEMP 36.9; O2SAT 97
--- NOTE | 2020-10-18 12:25 | PDOC.MHCN ---
Date of service: 10/18/20 Time of Service: 12:25 Mental Health Crisis Note Presenting Issue How did you arrive at the ED and why did you come: Client arrived to ED via [facility]. Client was initially screened by this clinician today at [facility] office. Client is at ED to get medically cleared i.e. labs and COVID test. Precipitating Factors Client denies SI/HI at this time. Disposition BEHAVIOR: Client presented as distraught, tearful but cordial and engaging throughout this assessment. EYE CONTACT: Client maintained good eye contact MOOD: Client presented with anxious, depressed and helpless mood AFFECT: Client presented with full affect APPETITE: Client reported decrease and/or lack of appetite in recent weeks SLEEP(trouble falling/staying asleep: Client reported an increase in due to current state of mind. Client stated she had been sleeping an average of 18 hours daily in recent weeks Plan Client is seeking placement at [facility] Crisis bed. Client need to be medically cleared before she can get placed there. Referral has been made to the crisis bed and it currently pending medical clearance (labs, provider notes and negative COVID results). Signature Clinician's Name/Title: Priscilla Enciso / Emergency Services Clinician, [facility]
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
[2020-10-18 13:04] LABS: Bilirubin Negative (Negative); Blood Negative (Negative); Clarity Clear (Clear); Glucose Negative (Negative); Ketones Negative (Negative); Leukocyte Esterase Negative (Negative); Nitrite Negative (Negative); Urobilinogen 0.2 EU/dL (Up TO 0.2); pH 6.5 (5-8)
[2020-10-18 13:14] LABS: Abs Immature Grans 0.02 10^3/uL (0.0-0.06); Absolute Basophil Count 0.04 10^3/uL (0.0-0.2); Absolute Eosinophil Count 0.05 10^3/uL (0.0-0.7); Absolute Lymphocyte Count 1.42 10^3/uL (1.2-3.4); Absolute Monocyte Count 0.66 10^3/uL (0.1-0.8); Absolute Neutrophil Count 6.94 10^3/uL (1.2-6.7); Basophils % 0.4; Eosinophils % 0.5; HCT 43.2 % (36.0-46.0); HGB 14.3 g/dL (11.2-15.7); Immature Grans % 0.2; Lymphocytes % 15.6; MCH 31.3 pg (27.0-33.0); MCHC 33.1 % (32.0-36.0); MCV 94.5 fL (80-95); Monocytes % 7.2; Neutrophils % 76.1; Nucleated RBC 0 %; Platelet Count 264 10^3/uL (130-400); RBC 4.57 10^6/uL (3.93-5.22); RDW 13.2 % (11.7-14.6); RDW-SD 45.9 fL; WBC 9.13 10^3/uL (4.4-10.8)
[2020-10-18 13:31] LABS: Source Nasal/Nares
[2020-10-18 13:38] LABS: *AMPHETAMINES SCREEN URINE Negative (Negative); *BARBITURATES SCREEN URINE Negative (Negative); *BENZODIAZEPINES SCREEN URINE Negative (Negative); Cannabinoids THC Positive (Negative); Cocaine Screen,Urine Negative (Negative); METHADONE URINE SCREEN Negative (Negative); OPIATES URINE SCREEN Negative (Negative)
[2020-10-18 13:41] LABS: Tricyclic Antidepressants Negative (Negative)
[2020-10-18 13:47] LABS: Magnesium 2.1 mg/dL (1.8-2.4); TSH (W/Ref FT4) 1.67 uIU/mL (0.36-3.74)
[2020-10-18 13:49] LABS: ETHANOL BLOOD < 3.0 mg/dL (<3)
[2020-10-18 14:02] LABS: ALT 35 U/L (14-59); AST 16 U/L (15-37); Albumin 3.8 g/dL (3.4-5.0); Alkaline Phosphatase 89 U/L (46-116); Anion Gap 5.1 mmol/L (3-11); BUN 13 mg/dL (7-18); Bilirubin, Total 0.2 mg/dL (0.2-1.0); CO2 30.9 mmol/L (21.0-32.0); CREATININE 0.8 mg/dL (0.55-1.02); Calcium 9.2 mg/dL (8.5-10.1); Chloride 104 mmol/L (98-107); Glucose 91 mg/dL (74-106); Potassium 3.9 mmol/L (3.5-5.1); Sodium 140 mmol/L (136-145); Total Protein 7.8 g/dL (6.4-8.2)
[2020-10-18 14:03] LABS: Troponin I < 0.05 ng/mL (<0.06)
[2020-10-18 14:22] VITALS: PULSE 74; TEMP 37.1; O2SAT 97
[2020-10-18 14:24] VITALS: BP 128/76; PULSE 76
[2020-10-18 14:25] LABS: COVID-19 PCR Negative (Negative)
[2020-10-18] MEDS: Acetaminophen 500 MG TAB 1000 MG PO (14:31)
[2020-10-18] MEDS: Lidocaine 5% Patch 1 PATCH TP (14:31)
[2020-10-18 14:37] LABS: Salicylate 3.4 mg/dL (<2.8)
[2020-10-18 14:40] LABS: Acetaminophen < 2 ug/mL (10-30)
== END 2020-10-18 16:10 | disposition other institution (70) ==
PROVIDERS: Emergency Provider Physician Assistant; PCP Student in an Organized Health Care Education/Training Program
DX: F41.8 Other specified anxiety disorders (principal); F43.10 Post-traumatic stress disorder, unspecified; Y04.8XXA Assault by other bodily force, initial encounter; M54.2 Cervicalgia; Z20.822 Contact with and (suspected) exposure to COVID-19; Z03.818 Encounter for observation for suspected exposure to other biological agents ruled out
CPT/HCPCS: 80053; 80307; 81025; 87635; 99283; 80320; 80329; 81003; 83735; 84443; 84484; 85025

== ENCOUNTER 2020-11-23 12:47 | Emergency (ER) | payer MEDICARE, MEDICAID, SELFPAY ==
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
[2020-11-23 13:22] VITALS: BP 155/78; PULSE 88; RESP 16; TEMP 36.8; O2SAT 99
== END 2020-11-23 13:36 | disposition home or self-care (01) ==
PROVIDERS: Emergency Provider Registered Nurse Emergency; PCP Student in an Organized Health Care Education/Training Program
DX: S67.195A Crushing injury of left ring finger, initial encounter (principal); W23.0XXA Caught, crushed, jammed, or pinched between moving objects, initial encounter; W49.04XA Ring or other jewelry causing external constriction, initial encounter
CPT/HCPCS: 99281; 99282

== ENCOUNTER 2020-12-23 12:27 | Emergency (ER) | payer MEDICARE, MEDICAID, SELFPAY ==
[2020-12-23 12:31] VITALS: BP 177/94; PULSE 103; RESP 16; O2SAT 97
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
[2020-12-23 13:16] LABS: Bilirubin Negative (Negative); Blood Negative (Negative); Clarity Clear (Clear); Glucose Negative (Negative); Ketones Negative (Negative); Leukocyte Esterase Negative (Negative); Nitrite Negative (Negative); Urobilinogen 0.2 EU/dL (Up TO 0.2); pH 7.5 (5-8)
[2020-12-23 13:19] LABS: Source Nasal/Nares
[2020-12-23 13:22] LABS: Abs Immature Grans 0.02 10^3/uL (0.0-0.06); Absolute Basophil Count 0.03 10^3/uL (0.0-0.2); Absolute Eosinophil Count 0.05 10^3/uL (0.0-0.7); Absolute Lymphocyte Count 1.26 10^3/uL (1.2-3.4); Absolute Monocyte Count 0.58 10^3/uL (0.1-0.8); Absolute Neutrophil Count 4.83 10^3/uL (1.2-6.7); Basophils % 0.4; Eosinophils % 0.7; HCT 40.7 % (36.0-46.0); HGB 13.5 g/dL (11.2-15.7); Immature Grans % 0.3; Lymphocytes % 18.6; MCH 31.4 pg (27.0-33.0); MCHC 33.2 % (32.0-36.0); MCV 94.7 fL (80-95); MPV 11.3 fL (8.0-11.0); Monocytes % 8.6; Neutrophils % 71.4; Nucleated RBC 0 %; Platelet Count 273 10^3/uL (130-400); RDW 13.4 % (11.7-14.6); WBC 6.77 10^3/uL (4.4-10.8)
[2020-12-23 13:44] LABS: *AMPHETAMINES SCREEN URINE Negative (Negative); *BARBITURATES SCREEN URINE Negative (Negative); *BENZODIAZEPINES SCREEN URINE Negative (Negative); Cannabinoids THC Positive (Negative); Cocaine Screen,Urine Negative (Negative); METHADONE URINE SCREEN Negative (Negative); OPIATES URINE SCREEN Negative (Negative)
[2020-12-23 13:45] LABS: Tricyclic Antidepressants Negative (Negative)
[2020-12-23 13:48] LABS: Salicylate 4.5 mg/dL (<2.8)
[2020-12-23 13:49] LABS: Acetaminophen < 2 ug/mL (10-30)
[2020-12-23 13:50] LABS: ALT 20 U/L (14-59); AST 13 U/L (15-37); Albumin 3.8 g/dL (3.4-5.0); Alkaline Phosphatase 88 U/L (46-116); BUN 9 mg/dL (7-18); Bilirubin, Total 0.3 mg/dL (0.2-1.0); CREATININE 0.8 mg/dL (0.55-1.02); Calcium 8.9 mg/dL (8.5-10.1); Chloride 106 mmol/L (98-107); ETHANOL BLOOD < 3.0 mg/dL (<3); Glucose 90 mg/dL (74-106); Potassium 3.8 mmol/L (3.5-5.1); Sodium 142 mmol/L (136-145); TSH (W/Ref FT4) 2.02 uIU/mL (0.36-3.74); Total Protein 7.7 g/dL (6.4-8.2)
[2020-12-23 14:13] LABS: COVID-19 PCR Negative (Negative)
== END 2020-12-23 15:45 | disposition designated cancer center or children's hospital (05) ==
PROVIDERS: Emergency Provider Nurse Practitioner Acute Care; PCP Student in an Organized Health Care Education/Training Program
DX: F41.9 Anxiety disorder, unspecified (principal); F32.9 Major depressive disorder, single episode, unspecified; F12.11 Cannabis abuse, in remission
CPT/HCPCS: 36415; 80053; 80307; 87635; 99281; 80320; 80329; 81003; 84443; 85025; 99282

== ENCOUNTER 2020-12-31 02:03 | Outpatient (CLI) | payer MEDICARE, MEDICAID, SELFPAY ==
[2020-12-31 15:46] LABS: Abs Immature Grans 0.02 10^3/uL (0.0-0.06); Absolute Basophil Count 0.03 10^3/uL (0.0-0.2); Absolute Eosinophil Count 0.05 10^3/uL (0.0-0.7); Absolute Lymphocyte Count 1.85 10^3/uL (1.2-3.4); Absolute Neutrophil Count 5.93 10^3/uL (1.2-6.7); Basophils % 0.3; Eosinophils % 0.6; HCT 41.6 % (36.0-46.0); HGB 14.1 g/dL (11.2-15.7); Immature Grans % 0.2; Lymphocytes % 21.6; MCH 31.5 pg (27.0-33.0); MCHC 33.9 % (32.0-36.0); MCV 92.9 fL (80-95); MPV 12.3 fL (8.0-11.0); Monocytes % 8.2; Neutrophils % 69.1; Nucleated RBC 0 %; Platelet Count 248 10^3/uL (130-400); RBC 4.48 10^6/uL (3.93-5.22); RDW-SD 44.3 fL; WBC 8.58 10^3/uL (4.4-10.8)
[2020-12-31 17:52] LABS: Iron 55 ug/dL (50-170)
[2020-12-31 18:22] LABS: ALT 27 U/L (14-59); AST 15 U/L (15-37); Albumin 4.2 g/dL (3.4-5.0); Alkaline Phosphatase 95 U/L (46-116); Anion Gap 8.4 mmol/L (3-11); BUN 11 mg/dL (7-18); Bilirubin, Total 0.3 mg/dL (0.2-1.0); CO2 27.6 mmol/L (21.0-32.0); CREATININE 0.8 mg/dL (0.55-1.02); Calcium 9.6 mg/dL (8.5-10.1); Chloride 102 mmol/L (98-107); Ferritin 141 ng/mL (8-252); Glucose 107 mg/dL (74-106); Potassium 4.4 mmol/L (3.5-5.1); Sodium 138 mmol/L (136-145); TSH 0.81 uIU/mL (0.36-3.74); Total Protein 7.6 g/dL (6.4-8.2); Vitamin B12 535 pg/mL (193-986)
[2020-12-31 21:52] LABS: FREE T4 1.09 ng/dL (0.76-1.46)
[2021-01-03 12:13] LABS: Transferrin 257 mg/dL (201-352)
[2021-01-11 12:42] LABS: Thiamine (Vitamin B1), WB 179 nmol/L (70-180)
== END 2020-12-31 02:04 | disposition home or self-care (01) ==
LOC: LBO 02:04
PROVIDERS: PCP Student in an Organized Health Care Education/Training Program; Visit Provider Psychiatry & Neurology Psychiatry
DX: F31.5 Bipolar disorder, current episode depressed, severe, with psychotic features (principal)
CPT/HCPCS: 36415; 80053; 84252; 82607; 82728; 83540; 84425; 84439; 84443; 84466; 85025; 86140

== ENCOUNTER 2021-01-05 04:35 | Outpatient (CLI) | payer MEDICARE, MEDICAID, SELFPAY ==
[2021-01-05 09:34] LABS: Anion Gap 8.7 mmol/L (3-11); BUN 11 mg/dL (7-18); CO2 29.3 mmol/L (21.0-32.0); CREATININE 0.8 mg/dL (0.55-1.02); Calcium 9.2 mg/dL (8.5-10.1); Chloride 104 mmol/L (98-107); Glucose 94 mg/dL (74-106); Potassium 4.5 mmol/L (3.5-5.1); Sodium 142 mmol/L (136-145)
== END 2021-01-05 04:36 | disposition home or self-care (01) ==
LOC: LBO 04:35
PROVIDERS: PCP Student in an Organized Health Care Education/Training Program; Visit Provider Psychiatry & Neurology Psychiatry
DX: R03.0 Elevated blood-pressure reading, without diagnosis of hypertension (principal); E86.0 Dehydration; E46 Unspecified protein-calorie malnutrition
CPT/HCPCS: 36415; 80048

== ENCOUNTER 2021-02-08 02:41 | Outpatient (CLI) | payer MEDICARE, MEDICAID, SELFPAY ==
[2021-02-08 10:56] LABS: ALT 24 U/L (14-59); AST 16 U/L (15-37); Albumin 3.7 g/dL (3.4-5.0); Alkaline Phosphatase 92 U/L (46-116); Anion Gap 8.9 mmol/L (3-11); BUN 15 mg/dL (7-18); Bilirubin, Total 0.3 mg/dL (0.2-1.0); CO2 27.1 mmol/L (21.0-32.0); CREATININE 0.8 mg/dL (0.55-1.02); Calcium 8.8 mg/dL (8.5-10.1); Chloride 102 mmol/L (98-107); Glucose 95 mg/dL (74-106); Potassium 4.5 mmol/L (3.5-5.1); Sodium 138 mmol/L (136-145)
[2021-02-10 00:55] LABS: Vitamin D 25 Total 41.6 ng/mL (30-100)
== END 2021-02-08 02:42 | disposition home or self-care (01) ==
LOC: LBO 02:41
PROVIDERS: PCP Student in an Organized Health Care Education/Training Program; Visit Provider Student in an Organized Health Care Education/Training Program
DX: R63.4 Abnormal weight loss; L40.9 Psoriasis, unspecified; R77.0 Abnormality of albumin; E46 Unspecified protein-calorie malnutrition
CPT/HCPCS: 36415; 80053; 82306

== ENCOUNTER 2021-03-21 01:45 | Outpatient (CLI) | payer MEDICARE, MEDICAID, SELFPAY ==
--- NOTE | 2021-03-21 07:15 | DI.RAD_ITS ---
Exam(s) XR ABDOMEN FLAT UPRIGHT EXAM: 2D digital imaging was performed. CLINICAL HISTORY: R/O obstipation,CHRONIC ABD PAIN, R10.9. COMPARISON: No exams were available for comparison TECHNIQUE: Supine and uprightSupine and Lateral views of the abdomen was performed. FINDINGS: BOWEL GAS PATTERN: Large quantity of stool throughout the colon, greater on the right. Small bowel n ondistended.No free air. CALCIFICATIONS: No radiopaque calcifications. OSSEOUS STRUCTURES: Degenerative changes with osteophytes more prominent in the thoracic spine. OTHER FINDINGS: Lung bases clear. Heart size normal. Cholecystectomy clips right upper quadrant. S urgical clips low pelvis. IMPRESSION: 1. Findings consistent with constipation. Nonobstructive bowel gas pattern. 2. No radiopaque calculi. 3. No free air. DATA REPOSITORY: RADIATION DOSE DELIVERED:
== END 2021-03-21 02:05 ==
PROVIDERS: PCP Student in an Organized Health Care Education/Training Program; Visit Provider Internal Medicine
DX: G89.29 Other chronic pain (principal); R10.9 Unspecified abdominal pain; K59.00 Constipation, unspecified
CPT/HCPCS: 74019

== ENCOUNTER 2021-04-15 00:45 | Outpatient (CLI) | payer MEDICARE, MEDICAID, SELFPAY ==
--- NOTE | 2021-04-15 06:45 | DI.MAMMO_ITS ---
Exam(s) MAMMO SCREENING EXAM: MAMMO SCREENING CLINICAL HISTORY: screening,Z12.39. TECHNIQUE: Bilateral full field digital CC and MLO mammographic images were obtained with 3D tomosyn thesis and utilizing computer aided detection (CAD). COMPARISON: Prior outside mammograms from 2014 were obtained and reviewed. FINDINGS: There has been no significant change in the appearance and distribution of the fibroglandular tissue. Asymmetric tissue in the retroareolar region of the left breast is unchanged from 2014. There are no new spiculated masses nor malignant appearing microcalcification groups. Numerous benign punctate microcalcifications are noted in both breast. There is no significant architectural distortion nor skin thickening-retraction. IMPRESSION: No radiographic evidence of malignancy. BI-RADS Category 2 - Benign Findings Breast Density - Category B - Scattered areas of fibroglandular density Breast density Category C or D implies that the patient has dense breast tissue. Dense breast tissue can make it harder to find cancer on a mammogram. Dense breast tissue is also associated with an incr eased risk of breast cancer. This information about the result of the mammogram report was provided to the patient to raise their awareness. Use this report when you speak with the patient about their risks for breast cancer, which includes their family history. At that time, you may recommend additional screening tests (Ultrasoun d or MRI) as these tests may add significant information. A negative radiographic report should not delay biopsy if a dominant or clinically suspicious mass is present. Up to ten percent of cancers are not identified on mammography. A negative report may reinforce clinical impression. Adenosis and dense breasts may obscure an underlying neoplasm. False positive reports average 6 to 10%. Patient will receive a letter notifying them of these results.
== END 2021-04-15 01:05 ==
PROVIDERS: PCP Student in an Organized Health Care Education/Training Program; Visit Provider Student in an Organized Health Care Education/Training Program
DX: Z12.31 Encounter for screening mammogram for malignant neoplasm of breast (principal)
CPT/HCPCS: 77063; 77067

== ENCOUNTER → 2021-10-26 12:40 | Outpatient (BNVA) | payer MEDICARE, MEDICAID, SELFPAY | PROVIDERS: PCP Student in an Organized Health Care Education/Training Program; Referring Provider Student in an Organized Health Care Education/Training Program; Visit Provider Surgery | DX: Z12.11 Encounter for screening for malignant neoplasm of colon (principal) ==

== ENCOUNTER 2021-11-10 10:00 | Day surgery (SDC) | payer MEDICARE, MEDICAID, SELFPAY ==
--- NOTE | 2021-11-10 07:24 | W.PM.DSUDISC ---
Discharge Plan Disposition Patient Disposition: HOME Condition: Good Discharge Details Reason For Visit: screening colonoscopy Attending Provider: Ok Gonzalez Primary Care Provider: Radhika Hancock Home Meds and New Rx's Prescriptions: Continued multivitamin [One Daily Multivitamin] Tablet 1 tab PO DAILY Qty: 90 3RF trazodone 50 mg tablet 50 mg PO QHS MDD 250mg PRN (Reason: sleep) Qty: 90 1RF Rx Instructions: Add to 200mg qHS (ok to use 100+150 PRN availability), as best dispensed. clobetasol 0.05 % gel 1 applic topical QHS Qty: 60 3RF Hold Instructions: Home Medication placed on hold at Doctor's office Rx Instructions: Continue gel for scalp qH ibuprofen 600 mg tablet 600 mg PO QID MDD 2400 mg PRN (Reason: pain or inflammation) Qty: 90 2RF Vraylar 3 mg capsule 3 mg PO .5pm diclofenac sodium [Voltaren Arthritis Pain] 1 % gel 4 g topical QID Qty: 100 1RF Rx Instructions: Trial for neck strain, inflammation bupropion HCl 150 mg tablet sustained-release 12 hr See Rx Instructions PO DAILY Rx Instructions: 300 mg PO A.M.; 150 mg po hs albuterol sulfate [ProAir HFA] 90 mcg/actuation HFA aerosol inhaler 2 puff Inhalation Q4H PRN PRN (Reason: shortness of breath or wheezing) Qty: 8.5 3RF Rx Instructions: As best dispensed per insurance coverage! naltrexone 50 mg tablet 25 mg PO BID Rx Instructions: Per [email or web address] dated 07/19/20, Does not come in 25 mg tablet do must break 50 mg in half. cholecalciferol (vitamin D3) 25 mcg (1,000 unit) capsule 25 mcg PO DAILY Rx Instructions: per [facility] 11/01/20 trazodone 100 mg tablet 200 mg PO HS Hold Instructions: On hold per Ana Jackson fluticasone propion-salmeterol [Advair Diskus] 250-50 mcg/dose blister with device 1 inh inhalation Q12H Qty: 60 1RF Rx Instructions: Used for episodes of asthma /reactive airway clobetasol 0.05 % shampoo 1 applic topical BID Qty: 118 3RF Rx Instructions: Refilling per [facility] Rx.. magnesium oxide 500 mg capsule 250 mg PO DAILY cyanocobalamin (vitamin B-12) 2,500 mcg tablet, sublingual 2,500 mcg sublingual DAILY omega-3 fatty acids-fish oil 300-500 mg capsule 1 cap PO DAILY levomefolate calcium 15 mg tablet 15 mg PO DAILY olanzapine [Zyprexa] 15 mg tablet 15 mg PO QHS Rx Instructions: 07/04/21 Restarted by LYNN duloxetine 60 mg capsule,delayed release(DR/EC) 60 mg PO DAILY Rx Instructions: per LYNN and per [facility] 11/01/20 epinephrine [EpiPen 2-Mikhail] 0.3 mg/0.3 mL auto-injector 0.3 mg IM Q6H PRN PRN (Reason: anaphylaxis) Qty: 6 10RF acetaminophen [Tylenol Extra Strength] 500 MG tablet 500 mg PO PRN PRN clonazepam 0.5 mg tablet 0.5 tab PO DAILY PRN Discontinued polyethylene glycol 3350 17 gram/dose powder 238 g PO ONCE Qty: 238 0RF Rx Instructions: take per colonoscopy instructions bisacodyl [Dulcolax (bisacodyl)] 5 mg tablet,delayed release (DR/EC) 5 mg PO ONCE Qty: 4 0RF Rx Instructions: take per colonoscopy instructions polyethylene glycol 3350 [Miralax] 17 gram/dose powder 17 g PO DAILY Qty: 510 0RF Discharge Instructions Instructions: Colonoscopy (DC), Colorectal Polyps (DC), Diverticulosis (DC) Additional Instructions: 1. If tolerated, consume a soft, low fiber diet for 1-2 days. [address] Do not drive, drink alcohol, operate machinery, make critical decisions, or do activities that require coordination or balance for 24 hours. 3. Because air was put into your colon during the procedure, expelling air from your rectum (passing gas or farting) is normal. 4. You may not have a bowel movement for 1-3 days because of the colonoscopy prep. This is normal. 5. Go directly to the emergency room if you notice any of the following: Develop chills (warm to touch), or if you have a thermometer and your temperature is above 101 Difficulty breathing or difficultly swallowing Persistent vomiting Severe abdominal pain, other than gas cramps Severe chest pain Black, tarry stools Any bleeding ? exceeding one tablespoon 6. Call your physician if the site where your intravenous was started becomes red, swollen, painful, and warm to touch. 7. Your physician has reviewed your pre-procedure medications. Please continue to take those medications as previously ordered. You will be given specific information/education regarding any changes to your medications before leaving. Referrals: Radhika Hancock DO [Primary Care Provider] - Activity:: Activity as Tolerated Diet:: As Tolerated Discharge Orders Discharge Orders: Discharge Order (Routine); Ordered 11/10/21 Ordered By: Ok Gonzalez DS: Diagnosis Discharge Diagnosis (1) Colorectal polyps: Status: Acute Asessment and Plan: my office will contact you with biopsy results (2) Diverticulosis: Status: Acute Asessment and Plan: eat a blanced and fiber rish diet
--- NOTE | 2021-11-10 07:26 | COLE_ITS ---
Colonoscopy Report Date of procedure: 11/10/21 Pre-op diagnosis general: screening colonoscopy Post-op diagnosis procedure note: other (diverticulosis, colorectal polyps) Procedure: screening colonoscopy Surgeon: Ok Gonzalez Anesthesia Type: General:No Airway Estimated blood loss (mL): 20 Pathology: other (polyps at 125 cm, 115cm (ascending), 80cm and 30 cm) Complications: None Disposition: same day Prep: Miralax/Dulcolax Procedure Start Time: 11:31 Procedure End Time: 12:03 Retraction Time: 21 Procedure Description: After the induction of monitored anesthetic care, and with the patient in left lateral decubitus position, I began by performing an external anorectal exam.? Perineum and skin were normal, as was the anal verge.? There was no evidence of external hemorrhoids.? Next, I performed a digital rectal exam.? I did not appreciate any abnormal findings.? Next, I advanced a colonoscope into the rectal vault.? I performed retroflexion.? I did not see signs of pathologic internal hemorrhoids.? Using insufflation, I then advanced the colonoscope beyond the rectal folds and into the sigmoid colon before advancing towards the cecum.? The quality of the prep was great.? The scope was noted to be in the cecum by identification of the ileocecal valve and appendiceal orifice.? I then began withdrawing the colonoscope using repeated irrigation as necessary for f ull evaluation of the colonic mucosa. Around 125 cm from the anal verge I identified a 0.25 cm polyp. ?It appeared sessilce in character. ?I was able to remove this with a cold forceps. ?I examined the site, and there was minimal bleeding. ?Once this was completed, I continued to withdraw the scope and examine the remainder of the colonic mucosa.?Around 115 cm from the anal verge, in the ascending colon I identified a 0.75 cm polyp. ?It appeared pedunculated in character. ?I was able to remove this with a cold snare. ?I examined the site, and there was minimal bleeding. ?Once this was completed, I continued to withdraw the scope and examine the remainder of the colonic mucosa. I found two more polyps, both less than 0.5 cm at 80 cm and 30 cm. Both were sessile and removed with cold foceps. Once the scope was withdrawn to the level of the rectum, great care was taken to examine portions of the rectal folds.? Finally, the scope was withdrawn and the patient was brought to the same-day surgery recovery unit as the anesthetic wore off. ?The findings and instructions were shared with the patient prior to discharge.
[2021-11-10 10:23] VITALS: BP 144/86; PULSE 70; RESP 18; TEMP 36.6; O2SAT 98
[2021-11-10] MEDS: Lactated Ringers 1,000 ML 80 ML IV (10:55)
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
[2021-11-10 11:03] VITALS: BMI 36.3
--- NOTE | 2021-11-10 11:40 | BOWEL_PTH ---
PATIENT: Genia Isaac LOC: [facility] U#:[id number] AGE/SX: 51/F ROOM: RE11/10/[address]: Ok Gonzalez MD : [id number] BED: DIS: 11/10/2021 SPEC #: [id number] RECD: 11/10/21 13:10 STATUS: [facility] #: [id number] CLOVER: 11/10/21 11:[address]: Ok Gonzalez DEPT: Surgical Specimen RECD BY: Brielle Cleary ENTERED: 11/10/21 13:11 SP TYPE: Bowel OTHR DR: Radhika Hancock DO Tissues: 1 - BIOPSY BOWEL 2 - BIOPSY BOWEL 3 - BIOPSY BOWEL 4 - BIOPSY BOWEL Procedures: GROSS AND MICRO LEVEL 4 Comments: [id number]
[2021-11-10 12:10] VITALS: BP 143/80; PULSE 71; RESP 18; TEMP 36.5; O2SAT 98
--- NOTE | 2021-11-10 12:34 | W.ANESPOSTOP ---
Postoperative Evaluation Date, Time and Location Date Performed: 11/10/21 Time Performed: 12:15 Patient Location: Day Surgery Unit Vital Signs Most Recent Imported Vital Signs: Most Recent Vital Signs Temp Pulse Resp BP Pulse Ox 36.5 C 71 18 143/80 H 98 11/10/21 12:10 11/10/21 12:10 11/10/21 12:10 11/10/21 12:10 11/10/21 12:10 Pain Score Most Recent Pain Score: Most Recent Pain Score Pain Level 0 11/10/21 12:10 Assessment Mental Status: Awake (Alert & Oriented to Patient Baseline) Airway and Respiratory Function: Patent airway with normal (patient baseline) respiratory exam Cardiovascular Function: Hemodynamically Stable Hydration Status: Adequately Hydrated Nausea & Vomiting: No Nausea or Vomiting Pain: Pt. Denies Any Pain Peripheral Nerve Block: Patient did not receive a nerve block
[2021-11-10 12:40] VITALS: BP 145/82; PULSE 69; RESP 18; TEMP 36.2; O2SAT 99
== END 2021-11-10 13:02 | disposition home or self-care (01) ==
PROVIDERS: PCP Student in an Organized Health Care Education/Training Program; Visit Provider Surgery
PROC: 0DJD8ZZ Inspection of Lower Intestinal Tract, Via Natural or Artificial Opening Endoscopic (ICD-10-PCS; CPT 45378; principal; 2021-11-10 11:45)
DX: Z12.11 Encounter for screening for malignant neoplasm of colon (principal); K63.5 Polyp of colon; K57.30 Diverticulosis of large intestine without perforation or abscess without bleeding
CPT/HCPCS: 45385; 45380; 88305; J2250; J2704

== ENCOUNTER 2022-08-25 02:53 | Outpatient (CLI) | payer MEDICARE, MEDICAID, SELFPAY ==
[2022-08-25 09:09] LABS: Anion Gap 9.7 mmol/L (3-11); BUN 18 mg/dL (7-18); CO2 26.3 mmol/L (21.0-32.0); CREATININE 0.8 mg/dL (0.55-1.02); Calcium 8.8 mg/dL (8.5-10.1); Chloride 104 mmol/L (98-107); Estimated GFR 88.05 (mL/min/1.73m2); Glucose 108 mg/dL (74-106); Magnesium 1.9 mg/dL (1.8-2.4); Potassium 4.1 mmol/L (3.5-5.1); Sodium 140 mmol/L (136-145); TSH (W/Ref FT4) 1.26 uIU/mL (0.36-3.74)
== END 2022-08-25 02:54 | disposition home or self-care (01) ==
LOC: LBO 02:54
PROVIDERS: PCP Student in an Organized Health Care Education/Training Program; Visit Provider Student in an Organized Health Care Education/Training Program
DX: R10.9 Unspecified abdominal pain (principal); F41.8 Other specified anxiety disorders; K59.00 Constipation, unspecified; E86.0 Dehydration; J45.909 Unspecified asthma, uncomplicated; G89.29 Other chronic pain
CPT/HCPCS: 36415; 80048; 83735; 84443

== ENCOUNTER 2022-09-15 01:17 | Outpatient (CLI) | payer MEDICARE, MEDICAID, SELFPAY ==
--- NOTE | 2022-09-15 09:52 | DI.RAD_ITS ---
Exam(s) XR CHEST 2V PA LATERAL EXAM: XR CHEST 2V PA LATERAL CLINICAL HISTORY: evaluate for pericard; pleural effusion, WHEEZING, REACTIVE AIRWAY DISEASE TECHNIQUE: 2D digital imaging was performed. COMPARISON: CR CHEST 2 VIEWS PA,LAT from 01/13/2016 FINDINGS: HEART: Normal size. Aorta: Not dilated. PULMONARY VASCULATURE: Normal. LUNGS: Clear. PLEURAL SPACE: No pleural effusion or pneumothorax. BONE:Degenerative changes in the spine. No compression fractures. IMPRESSION: No acute abnormality. DATA REPOSITORY: RADIATION DOSE DELIVERED:
== END 2022-09-15 01:37 ==
LOC: DI 01:18
PROVIDERS: PCP Student in an Organized Health Care Education/Training Program; Visit Provider Student in an Organized Health Care Education/Training Program
DX: J45.909 Unspecified asthma, uncomplicated (principal); R06.00 Dyspnea, unspecified; R06.01 Orthopnea; R06.89 Other abnormalities of breathing
CPT/HCPCS: 71046

== ENCOUNTER → 2022-12-04 00:58 | Outpatient (CLI) | payer MEDICARE, MEDICAID, SELFPAY ==
--- NOTE | 2022-12-04 08:30 | DI.US_ITS ---
APPROVED REPORT EXAM: Comprehensive 2D, Doppler, and color-flow Echocardiogram Patient Location: Out-Patient [employer] Can[employer] Baster: Evin Anderson RDCS (AE) Indications: evaluate heart function, pulm htn, dyspnea, reactive airway disease Conclusion Normal left ventricular wall thickness and chamber size. Ejection fraction is 60 to 65%. Wall motio n is normal Normal right ventricular size and systolic function Both atria are normal in size There is no structural or hemodynamically significant valvular disease Right ventricular systolic pressure could not be estimated Wall motion Left Ventricle The left ventricle is normal size. The left ventricular systolic function is normal. The left ventric ular ejection fraction is within the normal range. There is normal left ventricular wall thickness. T here is normal LV segmental wall motion. There is no ventricular septal defect visualized. LVEF is 60 -65%. Right Ventricle The right ventricle is normal size. The right ventricular systolic function is normal. Unable to asse ss PA pressure. Atria The left atrium size is normal. The right atrium size is normal. The interatrial septum is intact wit h no evidence for an atrial septal defect. Aortic Valve The aortic valve is normal in structure. Aortic valve is trileaflet. There is no aortic valvular sten osis. No aortic regurgitation is present. Mitral Valve Mitral valve leaflets are mildly thickened. No evidence of mitral valve stenosis. Mild mitral regurgi tation. Tricuspid Valve The tricuspid valve is normal in structure. There is no tricuspid valve stenosis. Trace tricuspid reg urgitation. Pulmonic Valve The pulmonary valve is normal in structure. There is no pulmonic valvular stenosis. Mild pulmonic reg urgitation. Great Vessels The aortic root is normal in size. The ascending aorta is normal in size. Aortic arch is normal in ca liber. IVC is normal in size and collapses >50% with inspiration. Pericardium There is no pericardial effusion. 2D Dimensions IVSD d PLAX 0.83 cm F: 0.6-1.0 Ao Root d 2.82 cm F: 2.7 - 3.3 LVPW d PLAX 0.84 cm F: 0.6 - 1.0 Ao Asc Diam d 3.13 cm F: 2.3 - 3.1 LVID d PLAX 4.85 cm F: 3.8 - 5.2 LVDs 3.23 cm F: 2.2 - 3.5 LV EF Teichholz 62.0 % FS 33.43 % LV EDV (Teich) 110.3 mL LV ESV (Teich) 41.9 mL Stroke Vol Index (Teich) 35.44 M-Mode TAPSE 2.09 cm (M/F) >1.7 Auto EF LV EDV A4C 103.6 mL LV EDV A2C 122.3 mL LV EDV BP 114.4 mL LV ESV A4C 40.0 mL LV ESV A2C 43.1 mL LV ESV BP 42.0 mL LVEF(%) A4C 61.4 % LVEF(%) A2C 64.8 % LVEF(%) BP 63.3 % LV SV A4C 63.6 ml LV SV A2C 79.3 ml LV SV BP 72.5 ml LV CO A4C 5.0 L/min LV CO A2C 5.6 L/min LV CO BP 5.3 L/min HR A4C 77.93 BPM HR A2C 70.73 BPM LV EDV Index (BP) LA Volume LA Length A4C 3.9 cm LA Length A2C LA Area A4C s 8.29 cm2 LA Area A2C s LA Vol A4C A-L 14.94 mL LA Vol A2C A-L LA Vol Biplane A-L LA Vol A4C MOD 13.6 mL LA Vol A2C MOD LA Vol BP MOD RA Volume RA Area A4C 5.8 cm2 RA ESV A4C (A-L) 7.1mL RA Vol/BSA A4C A-L RA Length A4C 4.0 cm RA ESV A4C (MOD) 6.9mL LV Diastology MV E' medial 0.082 (>0.07 m/s) MV E Vmax 0.73 (0.4-1.3 m/s) MV E/E' MED 8.96 (<14) MV A Vmax 0.85 (0.4-1.3 m/s) MV E' lateral 0.093 (>0.1 m/s) E/A Ratio 0.9 MV E/E' LAT 7.91 (<14) MV E' Average 0.087 m/s MV E/E'(average) 8.40 Aortic Valve AoV Vmax 1.53 m/s LVOT Vmax 1.30 m/s AoV Peak Grad 9.3 mmHg LVOT Peak Grad 6.8 mmHg AoV Area (Vmax) 3.17 cm2 LVOT VTI 0.232 m AoV VTI 0.283 m LVOT Mean Grad 3.6 mmHg AoV Mean George. 1.01 m/s LVOT SV 86.25 mL AoV Mean Grad 4.7 mmHg LVOT Diam s 2.15 cm AoV Area (VTI) 3.05 cm2 Velocity Ratio 0.85 Mitral Valve MV DT 153 (160-240 msec) Pulmonary Valve PV Vmax 1.25 (0.5-1.5 m/s) RVOT Vmax 0.73 m/s PV Peak Grad 6.3 mmHg RVOT Peak Gr. 2.1 mmHg PV Mean George 0.80 m/s RVOT VTI 0.147 m PV Mean Grad 3.0 mmHg RVOT Mean Gr. 1.3 mmHg
== END ==
PROVIDERS: PCP Student in an Organized Health Care Education/Training Program; Visit Provider Student in an Organized Health Care Education/Training Program
DX: J45.909 Unspecified asthma, uncomplicated (principal); R06.00 Dyspnea, unspecified; R06.01 Orthopnea; R06.89 Other abnormalities of breathing
CPT/HCPCS: 93306

== ENCOUNTER 2023-05-16 04:47 | Outpatient (CLI) | payer MEDICARE, MEDICAID, SELFPAY ==
[2023-05-16 13:09] LABS: Abs Immature Grans 0.01 10^3/uL (0.0-0.06); Absolute Basophil Count 0.03 10^3/uL (0.0-0.2); Absolute Eosinophil Count 0.08 10^3/uL (0.0-0.7); Absolute Monocyte Count 0.62 10^3/uL (0.1-0.8); Absolute Neutrophil Count 3.67 10^3/uL (1.2-6.7); Basophils % 0.5; Eosinophils % 1.3; HCT 36.8 % (36.0-46.0); HGB 12.5 g/dL (11.2-15.7); Immature Grans % 0.2; Lymphocytes % 27.8; MCV 91 fL (80-95); MPV 11.2 fL (8.0-11.0); Monocytes % 10.1; Neutrophils % 60.1; Platelet Count 208 10^3/uL (130-400); RBC 4.03 10^6/uL (3.93-5.22); RDW 12.7 % (11.7-14.6); RDW-SD 42.4 fL; WBC 6.11 10^3/uL (4.4-10.8)
== END 2023-05-16 04:48 | disposition home or self-care (01) ==
LOC: LBO 04:47
PROVIDERS: Absent Provider Student in an Organized Health Care Education/Training Program; PCP Student in an Organized Health Care Education/Training Program; Referring Provider Student in an Organized Health Care Education/Training Program; Visit Provider Student in an Organized Health Care Education/Training Program
DX: J45.909 Unspecified asthma, uncomplicated (principal); R06.00 Dyspnea, unspecified; R06.89 Other abnormalities of breathing; R06.01 Orthopnea
CPT/HCPCS: 36415; 85025

== ENCOUNTER → 2023-05-22 02:45 | Outpatient (CLI) | payer MEDICARE, MEDICAID, SELFPAY ==
--- NOTE | 2023-05-22 11:50 | DI.US_ITS ---
Exam(s) US UPPER EXTREMITY VENOUS LT EXAM: US UPPER EXTREMITY VENOUS LT CLINICAL HISTORY: ? dvt, lt upper arm pain,biceps muscle strain TECHNIQUE: GRAYSCALE, COLOR, DOPPLER IMAGING OF THE VENOUS SYSTEM OF THE UPPER EXTREMITY-LEFT COMPARISON: US US ECHOCARDIOGRAM from 12/04/2022 FINDINGS: Basilic vein: Patent. Normal color-flow and normal compression and augmentation properties. Brachial vein(s):Patent. Normal color flow. Normal compression and augmentation properties. Cephalic vein:Patent. Normal color flow. Normal compression and augmentation properties. Axillary vein: Patent. Normal color flow. Normal compression and augmentation properties. Visualized subclavian vein: Patent. No obvious intraluminal thrombus. IMPRESSION: 1. No evidence of venous thrombosis in the LEFT upper extremity. 2. DATA REPOSITORY:
== END ==
PROVIDERS: PCP Student in an Organized Health Care Education/Training Program; Visit Provider Student in an Organized Health Care Education/Training Program
DX: S46.219A Strain of muscle, fascia and tendon of other parts of biceps, unspecified arm, initial encounter; X58.XXXA Exposure to other specified factors, initial encounter
CPT/HCPCS: 93971

== ENCOUNTER → 2023-06-25 04:22 | Outpatient (CLI) | payer MEDICARE, MEDICAID, SELFPAY ==
--- NOTE | 2023-06-25 07:45 | DI.MRI_ITS ---
Exam(s) MR UPPER EXTREMITY LT WO CLINICAL HISTORY: evaluate for muscle tear (coracobrach?),LT UPPER ARM PAIN.BICEPS MUSCLE. TECHNIQUE: Multiplanar multisequence MRI Examination was performed. CONTRAST MATERIAL: Noncontrast COMPARISON: None FINDINGS: Bones: There is no fracture or contusion pattern. No bone marrow edema is present Musculotendinous structures: There is no muscular edema, hematoma or focal collection. No muscular in jury . The proximal biceps tendon appears intact. Small amount of fluid in the glenohumeral joint. Small amount of fluid in the subcoracoid bursa. IMPRESSION: No evidence of proximal biceps tendon tear or muscle injury. DATA REPOSITORY:
== END ==
PROVIDERS: PCP Student in an Organized Health Care Education/Training Program; Visit Provider Student in an Organized Health Care Education/Training Program
DX: M79.622 Pain in left upper arm (principal)
CPT/HCPCS: 73218

== ENCOUNTER 2023-07-17 05:48 | Outpatient (CLI) | payer MEDICARE, MEDICAID, SELFPAY ==
[2023-07-17 13:41] LABS: Anion Gap 7.3 mmol/L (3-11); BUN 19 mg/dL (7-18); CO2 27.7 mmol/L (21.0-32.0); CREATININE 0.9 mg/dL (0.55-1.02); Calcium 8.2 mg/dL (8.5-10.1); Chloride 102 mmol/L (98-107); Estimated GFR 75.97 (mL/min/1.73m2); Glucose 85 mg/dL (74-106); Magnesium 1.7 mg/dL (1.8-2.4); Potassium 4.2 mmol/L (3.5-5.1); Sodium 137 mmol/L (136-145)
== END 2023-07-17 05:49 | disposition home or self-care (01) ==
LOC: LBO 05:48
PROVIDERS: PCP Student in an Organized Health Care Education/Training Program; Visit Provider Student in an Organized Health Care Education/Training Program
DX: I10 Essential (primary) hypertension (principal); Z91.89 Other specified personal risk factors, not elsewhere classified
CPT/HCPCS: 36415; 80048; 83735

== ENCOUNTER → 2023-07-25 13:04 | Outpatient (BNVA) | payer MEDICARE, MEDICAID, SELFPAY | PROVIDERS: PCP Student in an Organized Health Care Education/Training Program; Referring Provider Student in an Organized Health Care Education/Training Program; Visit Provider Student in an Organized Health Care Education/Training Program | DX: M75.52 Bursitis of left shoulder (principal) | CPT/HCPCS: 99213 ==

== ENCOUNTER 2023-07-30 11:15 | Outpatient (REF) | payer MEDICARE, MEDICAID, SELFPAY ==
[2023-08-01 22:40] LABS: Calprotectin <50.0 mcg/g
== END 2023-07-30 11:16 | disposition home or self-care (01) ==
LOC: LBN 11:15
PROVIDERS: PCP Student in an Organized Health Care Education/Training Program; Visit Provider Student in an Organized Health Care Education/Training Program
DX: R19.4 Change in bowel habit (principal); K52.9 Noninfective gastroenteritis and colitis, unspecified
CPT/HCPCS: 83993

== ENCOUNTER 2023-08-08 05:04 | Outpatient (CLI) | payer MEDICARE, MEDICAID, SELFPAY ==
[2023-08-08 12:37] LABS: Abs Immature Grans 0.02 10^3/uL (0.0-0.06); Absolute Basophil Count 0.03 10^3/uL (0.0-0.2); Absolute Eosinophil Count 0.07 10^3/uL (0.0-0.7); Absolute Lymphocyte Count 1.92 10^3/uL (1.2-3.4); Absolute Monocyte Count 0.49 10^3/uL (0.1-0.8); Absolute Neutrophil Count 3.44 10^3/uL (1.2-6.7); Basophils % 0.5 %; Eosinophils % 1.2 %; HGB 12.8 g/dL (11.2-15.7); Immature Grans % 0.3 %; Lymphocytes % 32.2 %; MCH 29.4 pg (27.0-33.0); MCHC 32.8 % (32.0-36.0); MCV 90 fL (80-95); MPV 10.6 fL (8.0-11.0); Monocytes % 8.2 %; Neutrophils % 57.6 %; Platelet Count 220 10^3/uL (130-400); RBC 4.35 10^6/uL (3.93-5.22); RDW 12.7 % (11.7-14.6); RDW-SD 42.3 fL; WBC 5.97 10^3/uL (4.4-10.8)
[2023-08-08 13:01] LABS: ALT 25 U/L (14-59); AST 12 U/L (15-37); Albumin 3.6 g/dL (3.4-5.0); Alkaline Phosphatase 109 U/L (46-116); Anion Gap 0.6 mmol/L (3-11); BUN 21 mg/dL (7-18); Bilirubin, Total 0.2 mg/dL (0.2-1.0); CO2 31.4 mmol/L (21.0-32.0); CREATININE 0.9 mg/dL (0.55-1.02); Calcium 9.2 mg/dL (8.5-10.1); Calculated LDL 124 mg/dL (<100); Chloride 105 mmol/L (98-107); Cholesterol 214 mg/dL (<200); Estimated GFR 75.97 (mL/min/1.73m2); Glucose 107 mg/dL (74-106); HDL Cholesterol 77 mg/dL (40-60); Potassium 4.5 mmol/L (3.5-5.1); Sodium 137 mmol/L (136-145); Total Protein 7.7 g/dL (6.4-8.2); Triglyceride 69 mg/dL (<150)
[2023-08-08 15:49] LABS: Lipase 51 U/L (16-77)
[2023-08-10 19:32] LABS: Lab Add On Test DONE
[2023-08-10 19:56] LABS: TSH 2.38 uIU/Ml (0.36-3.74)
== END 2023-08-08 05:05 | disposition home or self-care (01) ==
LOC: LBO 05:04
PROVIDERS: PCP Student in an Organized Health Care Education/Training Program; Referring Provider Student in an Organized Health Care Education/Training Program; Visit Provider Student in an Organized Health Care Education/Training Program
DX: A09 Infectious gastroenteritis and colitis, unspecified; Z13.220 Encounter for screening for lipoid disorders; Z91.89 Other specified personal risk factors, not elsewhere classified; K86.89 Other specified diseases of pancreas; K52.9 Noninfective gastroenteritis and colitis, unspecified
CPT/HCPCS: 36415; 80053; 80061; 83690; 83735; 84439; 84443; 85025

== ENCOUNTER 2023-09-12 15:27 | Outpatient (REF) | payer MEDICARE, MEDICAID, SELFPAY ==
[2023-09-12 15:07] LABS: Lab Add On Test DONE
[2023-09-15 14:25] LABS: Pancreatic Elastase, F >500 mcg/g
[2023-09-15 16:05] LABS: Calprotectin <50.0 mcg/g
[2023-09-16 14:43] LABS: Norovirus G1 PCR Negative (Negative); Norovirus G2 PCR Negative (Negative)
[2023-09-25 16:32] LABS: Rotavirus Antigen, Feces Negative
== END 2023-09-12 15:28 | disposition home or self-care (01) ==
LOC: LBN 15:27
PROVIDERS: PCP Student in an Organized Health Care Education/Training Program; Visit Provider Student in an Organized Health Care Education/Training Program
DX: R19.7 Diarrhea, unspecified (principal); K86.89 Other specified diseases of pancreas
CPT/HCPCS: 87046; 87425; 87798; 82656; 82710; 83993; 87177

== ENCOUNTER 2023-09-19 02:24 | Outpatient (CLI) | payer MEDICARE, MEDICAID, SELFPAY ==
[2023-09-19 12:46] LABS: HCT 41.9 % (36.0-46.0); HGB 13.9 g/dL (11.2-15.7); MCH 29.8 pg (27.0-33.0); MCHC 33.2 % (32.0-36.0); MCV 90 fL (80-95); MPV 11.8 fL (8.0-11.0); Platelet Count 253 10^3/uL (130-400); RBC 4.66 10^6/uL (3.93-5.22); RDW 13.5 % (11.7-14.6); RDW-SD 44.1 fL; WBC 7.09 10^3/uL (4.4-10.8)
[2023-09-19 13:35] LABS: Folate > 20.0 ng/mL (8.6-20.0)
[2023-09-19 13:43] LABS: Iron 63 ug/dL (50-170); Total Iron Binding Capacity 363 ug/dL (250-450); Transferrin Sat 17 % (15-50)
[2023-09-19 13:44] LABS: ALT 19 U/L (14-59); AST 11 U/L (15-37); Albumin 3.9 g/dL (3.4-5.0); Alkaline Phosphatase 126 U/L (46-116); Anion Gap 9.8 mmol/L (3-11); BUN 11 mg/dL (7-18); Bilirubin, Total 0.24 mg/dL (0.2-1.0); CO2 28.2 mmol/L (21.0-32.0); CREATININE 0.8 mg/dL (0.55-1.02); Calcium 9.3 mg/dL (8.5-10.1); Chloride 103 mmol/L (98-107); Estimated GFR 86.96 (mL/min/1.73m2); Glucose 117 mg/dL (74-106); Potassium 4.2 mmol/L (3.5-5.1); Sodium 141 mmol/L (136-145); Total Protein 8.3 g/dL (6.4-8.2); Vitamin B12 1171 pg/mL (193-986); Vitamin D 25 Total 39.5 ng/mL (30-100)
[2023-09-19 13:52] LABS: Lipase 44 U/L (16-77)
[2023-09-20 21:02] LABS: Lab Add On Test DONE
[2023-09-20 21:26] LABS: Hemoglobin A1C 5.2 % (<5.7)
== END 2023-09-19 02:25 | disposition home or self-care (01) ==
LOC: LBO 02:24
PROVIDERS: PCP Student in an Organized Health Care Education/Training Program; Visit Provider Student in an Organized Health Care Education/Training Program
DX: R19.7 Diarrhea, unspecified (principal); I10 Essential (primary) hypertension; K86.89 Other specified diseases of pancreas; K90.9 Intestinal malabsorption, unspecified; E46 Unspecified protein-calorie malnutrition; Z90.49 Acquired absence of other specified parts of digestive tract; R73.09 Other abnormal glucose
CPT/HCPCS: 36415; 80053; 82306; 83690; 85027; 82607; 82746; 83036; 83540; 83550

== ENCOUNTER 2023-09-24 04:00 | Outpatient (CLI) | payer MEDICARE, MEDICAID, SELFPAY ==
[2023-09-24 15:31] LABS: Anion Gap 6.3 mmol/L (3-11); BUN 16 mg/dL (7-18); CO2 31.7 mmol/L (21.0-32.0); Calcium 9.1 mg/dL (8.5-10.1); Chloride 104 mmol/L (98-107); Estimated GFR 66.53 (mL/min/1.73m2); Glucose 105 mg/dL (74-106); Potassium 4.2 mmol/L (3.5-5.1); Sodium 142 mmol/L (136-145)
[2023-09-25 16:18] LABS: IgA 170 mg/dL (85-499); Interpretation (See Note); Tissue Transglutaminase IgA <4.0 CU (<20.0)
== END 2023-09-24 04:01 | disposition home or self-care (01) ==
LOC: LBO 04:01
PROVIDERS: PCP Student in an Organized Health Care Education/Training Program; Referring Provider Student in an Organized Health Care Education/Training Program; Visit Provider Student in an Organized Health Care Education/Training Program
DX: R19.7 Diarrhea, unspecified (principal)
CPT/HCPCS: 36415; 80048; 82784; 83516; 94762

== ENCOUNTER 2023-09-24 04:06 | Outpatient (CLI) | payer MEDICARE, MEDICAID, SELFPAY ==
--- NOTE | 2023-10-03 12:53 | W.NOCTURNAL ---
Date of service: 09/24/23 Time of Service: 20:00 Nocturnal Oximetry Note: Patient demonstrated 43 events of desaturations between 90 and 94%. 6 events between 85 and 89% but a total of last in the minute. Impression No significant desaturations requiring nocturnal oxygen supplementation for multiple desaturation events that could be suggestive of a sleep disorder. If suspected further investigation is warranted.
== END 2023-09-24 04:07 | disposition home or self-care (01) ==
LOC: RT 04:06
PROVIDERS: PCP Student in an Organized Health Care Education/Training Program; Visit Provider Student in an Organized Health Care Education/Training Program
DX: G47.8 Other sleep disorders (principal)
CPT/HCPCS: 00123; 94762

== ENCOUNTER 2023-09-26 20:30 | Outpatient (REF) | payer MEDICARE, MEDICAID, SELFPAY | END 2023-09-26 20:31 | disposition home or self-care (01) | LOC: LBN 20:30 | PROVIDERS: PCP Student in an Organized Health Care Education/Training Program; Visit Provider Student in an Organized Health Care Education/Training Program | DX: R19.7 Diarrhea, unspecified (principal) | CPT/HCPCS: 87046; 87329; 82710 ==

== ENCOUNTER 2023-12-13 15:41 | Outpatient (REF) | payer MEDICARE, MEDICAID, SELFPAY ==
[2023-12-13 18:37] LABS: HGB 13.3 g/dL (11.2-15.7)
[2023-12-13 18:57] LABS: ALT 25 U/L (14-59); AST 18 U/L (15-37); Albumin 3.7 g/dL (3.4-5.0); Alkaline Phosphatase 98 U/L (46-116); Anion Gap 6.3 mmol/L (3-11); BUN 18 mg/dL (7-18); Bilirubin, Total 0.26 mg/dL (0.2-1.0); CO2 27.7 mmol/L (21.0-32.0); CREATININE 0.9 mg/dL (0.55-1.02); Calcium 9.2 mg/dL (8.5-10.1); Chloride 101 mmol/L (98-107); Glucose 91 mg/dL (74-106); NT-proBNP 141 pg/mL (<300); Potassium 4.3 mmol/L (3.5-5.1); Sodium 135 mmol/L (136-145); Total Protein 7.5 g/dL (6.4-8.2)
== END 2023-12-13 15:42 | disposition home or self-care (01) ==
LOC: LBN 15:41
PROVIDERS: PCP Student in an Organized Health Care Education/Training Program; Visit Provider Student in an Organized Health Care Education/Training Program
DX: K90.9 Intestinal malabsorption, unspecified; R53.83 Other fatigue
CPT/HCPCS: 80053; 83735; 83880; 85018

== ENCOUNTER 2023-12-19 05:06 | Outpatient (CLI) | payer MEDICARE, MEDICAID, SELFPAY ==
[2023-12-19 13:52] LABS: Anion Gap 9.4 mmol/L (3-11); BUN 13 mg/dL (7-18); CO2 28.6 mmol/L (21.0-32.0); CREATININE 0.8 mg/dL (0.55-1.02); Calcium 9.1 mg/dL (8.5-10.1); Chloride 104 mmol/L (98-107); Estimated GFR 86.96 (mL/min/1.73m2); Glucose 100 mg/dL (74-106); Potassium 4.3 mmol/L (3.5-5.1); Sodium 142 mmol/L (136-145)
== END 2023-12-19 05:07 | disposition home or self-care (01) ==
LOC: LBO 05:07
PROVIDERS: PCP Student in an Organized Health Care Education/Training Program; Referring Provider Student in an Organized Health Care Education/Training Program; Visit Provider Student in an Organized Health Care Education/Training Program
DX: Z91.89 Other specified personal risk factors, not elsewhere classified (principal)
CPT/HCPCS: 36415; 80048

== ENCOUNTER 2023-12-24 05:55 | Emergency (ER) | payer MEDICARE, MEDICAID, SELFPAY ==
[2023-12-24] VITALS (29 sets, daily range): BP systolic 111–150; BP diastolic 52–81; PULSE 71–102; RESP 14–25; TEMP 36.9–40.1; O2SAT 89–98
--- NOTE | 2023-12-24 05:30 | RT.EKG_ITS ---
APPROVED REPORT Exam: Resting ECG Reason for Exam: SOB Patient Location: E HR:96 bpm ECG Measurements Heart Rate 96 AXIS DC 151 P 46 QRSd 87 QRS 29 QT 348 T 47 QTc 439 Conclusion Sinus rhythm...normal P axis, V-rate 60- [address] segment or T wave abnormalities to suggest occlusive CO
--- NOTE | 2023-12-24 06:00 | DI.RAD_ITS ---
Exam(s) XR CHEST 2V PA LATERAL EXAM: XR CHEST 2V PA LATERAL CLINICAL HISTORY: short of breath TECHNIQUE: 2D digital imaging was performed of the chest. Two images were obtained. PA and lateral views were obtained. COMPARISON: CR XR CHEST 2V PA LATERAL from 09/15/2022 FINDINGS: There is poor inspiration. MEDIASTINUM: Normal. HEART: Normal. PULMONARY VASCULATURE: Normal. LUNGS: No focal consolidating infiltrates are seen. PLEURAL SPACE: No pleural effusion or pneumothorax. BONE:Within normal limits for the patient's age. OTHER FINDINGS:Normal. IMPRESSION: No acute pulmonary findings. DATA REPOSITORY: RADIATION DOSE DELIVERED:
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
[2023-12-24] MEDS: Acetaminophen 500 MG TAB 1000 MG PO (06:14)
[2023-12-24] MEDS: Albuterol HFA 8 GM 60 PUFF INH IH (06:14)
[2023-12-24] MEDS: Inhaler, Assist Device 1 EACH MC (06:14)
[2023-12-24 06:18] LABS: Abs Immature Grans 0.02 10^3/uL (0.0-0.06); Absolute Basophil Count 0.03 10^3/uL (0.0-0.2); Absolute Eosinophil Count 0.04 10^3/uL (0.0-0.7); Absolute Lymphocyte Count 2.22 10^3/uL (1.2-3.4); Absolute Monocyte Count 0.99 10^3/uL (0.1-0.8); Absolute Neutrophil Count 6.64 10^3/uL (1.2-6.7); Basophils % 0.3 %; Eosinophils % 0.4 %; HCT 38.3 % (36.0-46.0); HGB 12.6 g/dL (11.2-15.7); Immature Grans % 0.2 %; Lymphocytes % 22.3 %; MCH 29.7 pg (27.0-33.0); MCHC 32.9 % (32.0-36.0); MCV 90 fL (80-95); MPV 11.4 fL (8.0-11.0); Neutrophils % 66.8 %; Platelet Count 204 10^3/uL (130-400); RBC 4.24 10^6/uL (3.93-5.22); RDW 13.5 % (11.7-14.6); RDW-SD 45.1 fL; WBC 9.94 10^3/uL (4.4-10.8)
[2023-12-24 06:32] LABS: Lactate 0.97 mmol/L (0.9-1.7)
[2023-12-24 06:44] LABS: COVID-19 PCR Negative (Negative); Influenza A PCR Negative (Negative); Influenza B PCR Negative (Negative); RSV PCR Negative (Negative)
[2023-12-24 06:48] LABS: Source Nasopharynx
--- NOTE | 2023-12-24 07:00 | DI.CT_ITS ---
Exam(s) CT CHEST PE CTA EXAM: CT CHEST PE CTA CLINICAL HISTORY: SOB, elevated dimer. TECHNIQUE: Imaging Protocol: Axial CT angiography was performed with multi-slice acquisition and mu lti-planar and/or 3D reconstructions. CONTRAST MATERIAL: Intravenous: Omnipaque 350 contrast volume:84 mL COMPARISON: CT CT HEAD CERVICAL SPINE WO from 10/28/2019 CR,XR XR CHEST 2V PA LATERAL from 12/24/2023 FINDINGS: There is poor inspiration. Tracheobronchial tree: Patent where visualized. No bronchiectasis. Pulmonary parenchyma: Atelectatic changes are seen in the lung bases. No focal consolidating infiltr ates are present. No architectural distortion. There is a 4 mm noncalcified pulmonary nodule in the right upper lobe (series 6, image 96). Pulmonary Arteries: No evidence of filling defect to suggest pulmonary emboli. Mediastinum and Ena: No dominant adenopathy or fluid collection. The esophagus is unremarkable. Visualized thyroid gland: Unremarkable. Pleura: No effusion or pneumothorax. Heart: The heart is not dilated. No coronary artery calcifications are seen. No pericardial effusion. Aorta: Thoracic aorta non-dilated. No evidence of dissection. Upper abdomen: Unremarkable. Soft tissues: Unremarkable. Bones: Within normal limits for the patient's age. IMPRESSION: 1. No evidence of pulmonary embolism, thoracic aortic dissection or aneurysm. 2. 4 mm right upper lobe pulmonary nodule. Solid nodules smaller than 6 mm do not require routine follow-up in all patients with high clinical r isk; however, some nodules smaller than 6 mm with suspicious morphology, upper lobe location, or both may warrant follow-up at 12 months (grade 2A; weak recommendation, high-quality evidence). (Feliberto et al., 2017) Single solid noncalcified nodules. ???Solid nodules smaller than 6 mm (those 5 mm or smaller) do not require routine follow-up in patients at low risk (grade 1C; strong recommendation, low- or very-low- quality evidence). (Feliberto et al., 2017) RADIATION DOSE DELIVERED: 135.35mGy.cm Total DLP DATA REPOSITORY: All CT scans at this facility are submitted to the National Radiology Data Registry (NRDR) Dose Index Registry (DIR) with the [employer] (ACR). RADIATION OPTIMIZATION: All CT scans at this facility use at least one of these dose optimization te chniques: automated exposure control; mA and/or kV adjustment per patient size (includes targeted exa ms where dose is matched to clinical indication); or iterative reconstruction.
[2023-12-24 07:02] LABS: D-Dimer 1414 ng/mlFEU (<500)
[2023-12-24 07:20] LABS: ALT 29 U/L (14-59); AST 20 U/L (15-37); Albumin 3.5 g/dL (3.4-5.0); Alkaline Phosphatase 86 U/L (46-116); Anion Gap 10.3 mmol/L (3-11); BUN 11 mg/dL (7-18); Bilirubin, Total 0.52 mg/dL (0.2-1.0); CO2 28.7 mmol/L (21.0-32.0); Chloride 101 mmol/L (98-107); Estimated GFR 66.53 (mL/min/1.73m2); Glucose 130 mg/dL (74-106); Magnesium 1.5 mg/dL (1.8-2.4); Potassium 3.9 mmol/L (3.5-5.1); Sodium 140 mmol/L (136-145); Troponin I 13 ng/L (<or=51)
--- NOTE | 2023-12-24 07:28 | DI.VRAD_ITS ---
PROCEDURE INFORMATION: Exam: XR Chest Exam date and time: 12/24/2023 6:29 AM Age: 53 years old Clinical indication: Shortness of breath; Patient HX: SOB TECHNIQUE: Imaging protocol: Radiologic exam of the chest. Views: 2 views. COMPARISON: CR XR CHEST 2V PA LATERAL 09/15/2022 9:45 AM FINDINGS: Lungs: Mild pulmonary vascular redistribution. Pleural spaces: No large pleural effusion seen. Heart/Mediastinum: Cardiac silhouette magnified by AP technique. Bones/joints: No acute abnormality. IMPRESSION: No acute findings to explain reported symptoms. Dictated and Authenticated by: Xochilt Fox MD. Ordering:STEPHANIE Faith MD
[2023-12-24 07:45] LABS: Troponin I 16 ng/L (<or=51)
[2023-12-24] MEDS: Omnipaque 350 MG/ML 100 ML BTL IJ (07:45)
[2023-12-24] MEDS: Normal Saline - Diluent 50 ML VIAL IJ (07:47)
--- NOTE | 2023-12-24 07:54 | W.EDPROG ---
Date of service: 12/24/23 Time of Service: 07:55 Medical Decision Making Care assumed from outgoing provider. Patient is a 53-year-old female presenting with pleuritic shortness of breath and fever. Viral testing is negative. At this time disposition is pending CTA, urinalysis and third troponin. 0815 UA reviewed, no signs of infection. 0930 CTA negative for pulmonary embolism. Incidental lung nodule noted, can be monitored by PCP. Symptoms likely viral illness. Can follow-up with PCP. Return precautions advised. Quality:[facility] Health Related Social Needs: No Data to Display Sign Out Sign Out Data: Sign Out Comment: 53yo with fever, SOB, pleuritic pain. Pending CTA for PE, chemistry & troponins, reassessment. Last updated by Vianney Echeverria MD at 12/24/23 07:31 Discharge Plan Disposition Patient Disposition: Home Discharge Details Clinical Impression: Dyspnea, Fever Primary Care Provider: Radhika Hancock ED Provider: Sukumar Joe Home Meds and New Rx's Prescriptions: No Action epinephrine [EpiPen 2-Mikhail] 0.3 mg/0.3 mL auto-injector 0.3 mg IM Q6H PRN PRN (Reason: anaphylaxis to bee) Qty: 6 10RF clonazepam 1 mg tablet 1 mg PO QHS Rx Instructions: administer 30 minutes before bedtime clonidine HCl 0.1 mg tablet 0.1 mg PO BID diphenoxylate-atropine [Lomotil] 2.5-0.025 mg tablet 2 tab PO QID Qty: 160 1RF Rx Instructions: Trial x 1-2 weeks as discussed (review , 12/17) Banatrol Plus Powder In Packet 1 packet PO DAILY PRN Qty: 10 0RF Rx Instructions: Is this available? What is the cost? Can you call patient w/ info? Senior Probiotic 15 billion cell capsule 15,000 mmu cells PO DAILY Qty: 90 1RF Rx Instructions: Trial probiotic 2' chronic diarrhea psyllium husk [Fiber (psyllium husk)] 0.52 gram capsule 0.52 g PO DAILY Qty: 180 1RF Rx Instructions: Trial with midday meal x 1 week, then add AC/qHS as tolerated cholecalciferol (vitamin D3) 25 mcg (1,000 unit) capsule 25 mcg PO DAILY Rx Instructions: per [facility] 11/01/20 clobetasol 0.05 % shampoo 1 applic topical BID Qty: 118 3RF Rx Instructions: Refilling per [facility] Rx.. cyanocobalamin (vitamin B-12) 2,500 mcg tablet, sublingual 2,500 mcg sublingual DAILY levomefolate calcium 15 mg tablet 15 mg PO DAILY multivitamin with folic acid [Daily-Vanessa (with folic acid)] 400 mcg tablet See Rx Instructions .ROUTE .COMPLEX Qty: 90 3RF Dose Instruction: TAKE 1 TABLET BY MOUTH DAILY Rx Instructions: TAKE 1 TABLET BY MOUTH DAILY magnesium oxide 250 mg magnesium tablet 250 mg PO DAILY escitalopram oxalate [Lexapro] 10 mg tablet 10 mg PO DAILY Rx Instructions: 08/10/23-pt called and stated she spoke w/ her psych provider and he decreased this from 20mg to 10mg and suggested she take with a meal. [place] Bismuth 525 mg/15 mL suspension 525 mg PO Q30-60M MDD 120mL PRN (Reason: diarrhea) Qty: 600 1RF Rx Instructions: do not exceed 8 doses in a 24 hour period.. BEST DISPENSED hydralazine 10 mg tablet 10 mg PO QID PRN (Reason: uncontrolled blood pressures ; hypertension) Qty: 120 1RF Rx Instructions: Trial q4 hours x 1 week, if/when BP remains high (> 140/85) loperamide [Imodium A-D] 2 mg capsule 2 mg PO Q6H PRN (Reason: loose stool) Qty: 120 1RF Rx Instructions: Trial - need GI Notes for accurate recommendations loperamide [Imodium A-D] 2 mg tablet See Rx Instructions PO Q6H PRN Rx Instructions: orally every 6 hours PRN; Start with 1/2 to 1 tab daily. Per [facility], use preventatively and can incr dose based on bowel pattern ibuprofen 600 mg tablet 600 mg PO Q8H MDD 1800 mg PRN (Reason: pain or inflammation) Qty: 90 2RF acetaminophen [Tylenol Extra Strength] 500 MG tablet 500 mg PO PRN PRN Discharge Instructions Additional Instructions: Fever likely from viral illness. But COVID and flu testing are negative. There are no signs of pneumonia. At this time you do not need antibiotics. CT scan is negative for blood clot. Your symptoms may worsen if this is the beginning of your illness. Please follow-up here with PCP for reevaluation if symptoms persist.
[2023-12-24 07:57] LABS: Bilirubin Negative (Negative); Blood Trace-intact (Negative); Clarity Clear (Clear); Glucose Negative (Negative); Ketones Negative (Negative); Leukocyte Esterase Negative (Negative); Nitrite Negative (Negative); Urobilinogen 0.2 mg/dL (Up to 0.2)
[2023-12-24 08:03] LABS: Bacteria Negative HPF (Negative); C & S Indicated? No; Casts Negative LPF (Negative); Crystals Negative HPF (Negative); Epithelial Cells Rare HPF (Negative); Mucus Negative (Negative); RBC 0-2 HPF (0-2); WBC Negative HPF (0-5)
== END 2023-12-24 09:45 | disposition home or self-care (01) ==
PROVIDERS: Student in an Organized Health Care Education/Training Program; Emergency Provider Emergency Medicine; PCP Student in an Organized Health Care Education/Training Program
DX: R06.09 Other forms of dyspnea (principal); R50.9 Fever, unspecified; J45.909 Unspecified asthma, uncomplicated; I10 Essential (primary) hypertension; G47.33 Obstructive sleep apnea (adult) (pediatric); Z87.891 Personal history of nicotine dependence
CPT/HCPCS: 00123; 71275; 80053; 87637; 93005; 99285; 71046; 81003; 81015; 83605; 83735; 84484; 85025; 85379; 93010; 99284; J3490

== ENCOUNTER 2024-02-11 03:36 | Outpatient (CLI) | payer MEDICARE, MEDICAID, SELFPAY ==
[2024-02-11 11:41] LABS: HGB 13.4 g/dL (11.2-15.7)
[2024-02-11 12:05] LABS: Anion Gap 9.2 mmol/L (3-11); BUN 15 mg/dL (7-18); CO2 26.8 mmol/L (21.0-32.0); CREATININE 0.8 mg/dL (0.55-1.02); Calcium 8.9 mg/dL (8.5-10.1); Chloride 103 mmol/L (98-107); Estimated GFR 86.96 (mL/min/1.73m2); Glucose 95 mg/dL (74-106); Potassium 4.3 mmol/L (3.5-5.1); Sodium 139 mmol/L (136-145)
== END 2024-02-11 03:37 | disposition home or self-care (01) ==
LOC: LBO 03:36
PROVIDERS: PCP Student in an Organized Health Care Education/Training Program; Visit Provider Student in an Organized Health Care Education/Training Program
DX: I10 Essential (primary) hypertension (principal); E46 Unspecified protein-calorie malnutrition; Z86.2 Personal history of diseases of the blood and blood-forming organs and certain disorders involving the immune mechanism; Z91.89 Other specified personal risk factors, not elsewhere classified
CPT/HCPCS: 36415; 80048; 83735; 85018

== ENCOUNTER 2024-02-25 19:30 | Outpatient (REF) | payer MEDICARE, MEDICAID, SELFPAY ==
[2024-02-27 14:47] LABS: Total Fat/24 Hr 16 g/24 h (2 - 7)
== END 2024-02-25 19:31 | disposition home or self-care (01) ==
LOC: LBN 19:30
PROVIDERS: PCP Student in an Organized Health Care Education/Training Program; Visit Provider Student in an Organized Health Care Education/Training Program
DX: R19.7 Diarrhea, unspecified (principal); K86.89 Other specified diseases of pancreas
CPT/HCPCS: 82710

== ENCOUNTER → 2024-03-06 10:36 | Outpatient (BNVA) | payer MEDICARE, MEDICAID, SELFPAY | PROVIDERS: PCP Nurse Practitioner; Referring Provider Student in an Organized Health Care Education/Training Program; Visit Provider Surgery | DX: K52.9 Noninfective gastroenteritis and colitis, unspecified (principal); K90.9 Intestinal malabsorption, unspecified; R19.4 Change in bowel habit | CPT/HCPCS: 99214 ==

== ENCOUNTER 2024-03-10 03:28 | Outpatient (CLI) | payer MEDICARE, MEDICAID, SELFPAY ==
[2024-03-10] MEDS: Levalbuterol HFA 15 GM INH 4 PUFF IH (11:28)
[2024-03-10] MEDS: Inhaler, Assist Device 1 EACH MC (11:28)
--- NOTE | 2024-03-13 12:13 | W.PFT ---
Date of service: 03/10/24 Time of Service: 09:58 Pulmonary Function Test Result Indications: Asthma Interpretation Spirometry: No airflow limitation. No bronchodilator response. Lung Volumes: Normal lung volumes Diffusion Capacity: Normal diffusion Airway Pressure: Normal airways resistance Impression Normal pulmonary function testing Clinical Correlation therefore is recommended.
== END 2024-03-10 03:29 | disposition home or self-care (01) ==
LOC: RT 03:28
PROVIDERS: PCP Nurse Practitioner; Visit Provider Student in an Organized Health Care Education/Training Program
DX: J45.909 Unspecified asthma, uncomplicated (principal)
CPT/HCPCS: 94060; 94726; 94729

== ENCOUNTER 2024-03-10 09:49 | Outpatient (REF) | payer MEDICARE, MEDICAID, SELFPAY ==
[2024-03-13 22:21] LABS: Calprotectin 54.3 mcg/g
== END 2024-03-10 09:50 | disposition home or self-care (01) ==
LOC: LBN 09:49
PROVIDERS: PCP Nurse Practitioner; Visit Provider Student in an Organized Health Care Education/Training Program
DX: R19.7 Diarrhea, unspecified (principal)
CPT/HCPCS: 83993; 87177

== ENCOUNTER 2024-03-18 01:17 | Outpatient (CLI) | payer MEDICARE, MEDICAID, SELFPAY ==
--- NOTE | 2024-03-18 13:00 | DI.US_ITS ---
Exam(s) US ABDOMEN LIMITED EXAM: US ABDOMEN LIMITED CLINICAL HISTORY: evaluate biliary ducts, liver; s/p cholecystectomy,CHECK RUQ, TECHNIQUE: Ultrasound abdomen performed using standard protocol. COMPARISON: No exams were available for comparison FINDINGS: PANCREAS: Normal where visualized. LIVER: Normal. Hepatopetal flow in the Portal Vein. The liver measures in 17.6 cm length. No evidence of a hepatic mass. GALLBLADDER:Status post cholecystectomy. BILIARY SYSTEM: Common bile duct measures < 7 mm. No intrahepatic biliary ductal dilation. RIGHT KIDNEY: Kidney is normal in size. No evidence of renal calculi. No evidence of hydronephrosis. There is a 1.4 cm cyst in the midpole of the right kidney. No follow-up is recommended. ASCITES: None seen. IMPRESSION: Status post cholecystectomy. No biliary ductal dilatation. No sonographic evidence of choledocholit hiasis. DATA REPOSITORY:
== END 2024-03-18 01:37 ==
LOC: DI 01:17
PROVIDERS: PCP Nurse Practitioner; Visit Provider Student in an Organized Health Care Education/Training Program
DX: K52.9 Noninfective gastroenteritis and colitis, unspecified; R19.5 Other fecal abnormalities
CPT/HCPCS: 76705

== ENCOUNTER 2024-03-31 03:12 | Outpatient (CLI) | payer MEDICARE, MEDICAID, SELFPAY ==
[2024-03-31 11:43] LABS: HGB 13.3 g/dL (11.2-15.7)
[2024-03-31 12:10] LABS: Bilirubin Negative (Negative); Blood Negative (Negative); Clarity Clear (Clear); Glucose Negative (Negative); Ketones Negative (Negative); Leukocyte Esterase Negative (Negative); Nitrite Negative (Negative); Urobilinogen 0.2 mg/dL (Up to 0.2); pH 6.5 (5-8)
[2024-03-31 12:11] LABS: Folate > 20.0 ng/mL (8.6-20.0)
[2024-03-31 12:21] LABS: Ferritin 116 ng/mL (8-252); Vitamin B12 691 pg/mL (193-986)
[2024-03-31 12:22] LABS: Iron 77 ug/dL (50-170); Total Iron Binding Capacity 380 ug/dL (250-450); Transferrin Sat 20 % (15-50)
[2024-03-31 18:33] LABS: HIV-1/2 Ag & Ab Screen Negative (Negative)
[2024-03-31 19:01] LABS: Hepatitis C Ab w Rflx HCV PCR Negative (Negative)
[2024-04-03 15:18] LABS: Free Retinol (Vitamin A) 70.5 mcg/dL (32.5-78.0)
[2024-04-07 13:55] LABS: Beta-Carotene 24 ug/dL (3-91)
== END 2024-03-31 03:13 | disposition home or self-care (01) ==
LOC: LBO 03:12
PROVIDERS: PCP Nurse Practitioner; Visit Provider Student in an Organized Health Care Education/Training Program
DX: K52.9 Noninfective gastroenteritis and colitis, unspecified; K90.9 Intestinal malabsorption, unspecified; R39.9 Unspecified symptoms and signs involving the genitourinary system; Z11.59 Encounter for screening for other viral diseases
CPT/HCPCS: 36415; 86803; 87389; 81003; 82380; 82607; 82728; 82746; 83540; 83550; 84590; 84597; 85018

== ENCOUNTER 2024-04-15 00:11 | Outpatient (CLI) | payer MEDICARE, MEDICAID, SELFPAY ==
--- NOTE | 2024-04-15 06:30 | DI.MAMMO_ITS ---
Exam(s) MAMMO SCREENING EXAM: MAMMO SCREENING CLINICAL HISTORY: screening,z12.39 TECHNIQUE: Mammograms were interpreted according to the usual protocol including computer analysis w [employer] CAD system, tomosynthesis and C-view imaging. COMPARISON: 2021 FINDINGS: The breasts are composed of scattered fibroglandular densities, Breast Density category B. No suspicious masses or suspicious microcalcifications are seen. No skin thickening or abnormal axillary lymph nodes are seen. There has been no significant change from prior exams. IMPRESSION: BI-RADS Category 1, Negative mammogram Yearly screening mammography is recommended. Breast Density - Category B, scattered fibroglandular densities. A negative radiographic report should not delay biopsy if a dominant or clinically suspicious mass is present. Up to ten percent of cancers are not identified on mammography. A negative report may reinforce clinical impression. Adenosis and dense breasts may obscure an underlying neoplasm. False positive reports average 6 to 10%. Patient will receive a letter notifying them of these results.
== END 2024-04-15 00:31 ==
LOC: DI 00:11
PROVIDERS: PCP Nurse Practitioner; Visit Provider Nurse Practitioner
DX: Z12.31 Encounter for screening mammogram for malignant neoplasm of breast (principal); R92.323 Mammographic fibroglandular density, bilateral breasts
CPT/HCPCS: 77063; 77067

== ENCOUNTER 2024-06-26 01:06 | Outpatient (CLI) | payer MEDICARE, MEDICAID, SELFPAY ==
[2024-06-26 13:00] LABS: HCT 37.6 % (36.0-46.0); HGB 12.6 g/dL (11.2-15.7); MCH 30.1 pg (27.0-33.0); MCHC 33.5 % (32.0-36.0); MCV 90 fL (80-95); MPV 11.2 fL (8.0-11.0); Platelet Count 230 10^3/uL (130-400); RBC 4.18 10^6/uL (3.93-5.22); RDW 14.6 % (11.7-14.6); RDW-SD 48.2 fL; WBC 5.86 10^3/uL (4.4-10.8)
[2024-06-26 14:13] LABS: ALT 26 U/L (14-59); AST 13 U/L (15-37); Estimated GFR 66.53 (mL/min/1.73m2)
[2024-06-26 14:26] LABS: Cholesterol 221 mg/dL (<200); Triglyceride 150 mg/dL (<150)
== END 2024-06-26 01:07 | disposition home or self-care (01) ==
PROVIDERS: PCP Nurse Practitioner; Visit Provider Dermatology
DX: L40.1 Generalized pustular psoriasis (principal); Z79.899 Other long term (current) drug therapy
CPT/HCPCS: 36415; 85027; 82465; 82565; 84450; 84460; 84478

== ENCOUNTER 2024-09-23 02:48 | Outpatient (CLI) | payer MEDICARE, MEDICAID, SELFPAY ==
--- NOTE | 2024-09-23 07:45 | DI.RAD_ITS ---
Exam(s) XR CHEST 2V PA LATERAL EXAM: XR CHEST 2V PA LATERAL CLINICAL HISTORY: 6 month f/u,lung nodules,r91.1 TECHNIQUE: 2D digital imaging was performed of the chest. Two images were obtained. PA and lateral views were obtained. COMPARISON: CR XR CHEST 2V PA LATERAL from 09/15/2022 CR,XR XR CHEST 2V PA LATERAL from 12/24/2023 FINDINGS: MEDIASTINUM: Normal. HEART: Normal. PULMONARY VASCULATURE: Normal. LUNGS: Clear. PLEURAL SPACE: No pleural effusion or pneumothorax. BONE:Within normal limits for the patient's age. OTHER FINDINGS:Normal. IMPRESSION: 1. No acute pulmonary findings. 2. The lung nodule was visualized on the CT scan of the chest. A follow-up CT scan of the chest should be considered for further evaluation. DATA REPOSITORY: RADIATION DOSE DELIVERED:
== END 2024-09-23 03:08 ==
LOC: DI 02:48
PROVIDERS: PCP Nurse Practitioner; Visit Provider Family Medicine
DX: R91.1 Solitary pulmonary nodule (principal)
CPT/HCPCS: 71046

== ENCOUNTER 2024-09-23 13:02 | Outpatient (CLI) | payer MEDICARE, MEDICAID, SELFPAY ==
[2024-09-23 13:16] LABS: HCT 39.4 % (36.0-46.0); HGB 12.9 g/dL (11.2-15.7); MCH 28.9 pg (27.0-33.0); MCHC 32.7 % (32.0-36.0); MCV 88 fL (80-95); MPV 11.6 fL (8.0-11.0); Platelet Count 248 10^3/uL (130-400); RBC 4.46 10^6/uL (3.93-5.22); RDW 13.0 % (11.7-14.6); RDW-SD 42.0 fL; WBC 6.62 10^3/uL (4.4-10.8)
[2024-09-23 14:03] LABS: Cholesterol 227 mg/dL (<200); Triglyceride 111 mg/dL (<150)
[2024-09-23 14:08] LABS: ALT 30 U/L (14-59); AST 19 U/L (15-37); Estimated GFR 86.42 (mL/min/1.73m2)
== END 2024-09-23 13:03 | disposition home or self-care (01) ==
LOC: LBO 13:03
PROVIDERS: PCP Nurse Practitioner; Visit Provider Dermatology
DX: L40.1 Generalized pustular psoriasis (principal); Z79.899 Other long term (current) drug therapy
CPT/HCPCS: 36415; 85027; 71046; 82465; 82565; 84450; 84460; 84478

== ENCOUNTER 2024-10-08 02:57 | Outpatient (CLI) | payer MEDICARE, MEDICAID, SELFPAY ==
--- NOTE | 2024-10-08 07:15 | DI.CT_ITS ---
Exam(s) CT CHEST WO EXAM: CT CHEST WO CLINICAL HISTORY: follow up lung nodule R91.1 SOLITARY PULMONARY NODULE >3MM AND <8MM TECHNIQUE: Imaging Protocol: Axial computed tomography images with coronal and sagittal reformatted images were created and reviewed. Computer aided detection (CAD) was utilized. CONTRAST MATERIAL: Intravenous: Omnipaque 350 Contrast volume:structured data ml. COMPARISON: CT CT CHEST PE CTA from 12/24/2023 FINDINGS: Pulmonary parenchyma: No consolidation. No dominant measurable mass. Stable 4 millimeter nodule in the superior aspect of the right middle lobe. Was mention on the previous exam to be in the right upper lobe but is actually in the right middle lobe. No additional nodules. Tracheobronchial tree: No bronchiectasis or mucous plugging. Mediastinum and Ena: No dominant adenopathy or fluid collection. Pleura: No effusion. No pneumothorax. Heart: The heart is not dilated. No coronary artery calcifications are seen. Aorta: Thoracic aorta non-dilated. Mild atherosclerotic changes. Pulmonary arteries: No gross evidence of emboli. Upper abdomen: No acute findings. Bones: Prominent osteophytes in the thoracic spine. Soft tissues: Unremarkable. IMPRESSION: Stable 4 millimeter nodule in the right middle lobe. RADIATION DOSE DELIVERED: 274.7mGy.cm Total DLP DATA REPOSITORY: All CT scans at this facility are submitted to the National Radiology Data Registry (NRDR) Dose Index Registry (DIR) with the [employer] (ACR). RADIATION OPTIMIZATION: All CT scans at this facility use at least one of these dose optimization techniques: automated exposure control; mA and/or kV adjustment per patient size (includes targeted exams where dose is matched to clinical indication); or iterative reconstruction.
== END 2024-10-08 03:17 ==
LOC: DI 02:57
PROVIDERS: PCP Nurse Practitioner; Visit Provider Family Medicine
DX: R91.1 Solitary pulmonary nodule (principal)
CPT/HCPCS: 71250

== ENCOUNTER 2024-11-16 14:20 | Emergency (ER) | payer MEDICARE, MEDICAID, SELFPAY ==
[2024-11-16 14:30] VITALS: BP 167/121; PULSE 86; RESP 20; TEMP 36.7; O2SAT 97
--- NOTE | 2024-11-16 14:45 | DI.RAD_ITS ---
Exam(s) XR TIB/FIB LT XR KNEE LT 3V AP,LAT,JULIANNA XR FEMUR LT EXAM: XR KNEE LT 3V AP,LAT,JULIANNA CLINICAL HISTORY: pain post fall. TECHNIQUE: 2D digital imaging was performed. Three views of the knee. AP and lateral views of the tibia and fibula. AP and lateral views of the femur. COMPARISON: CR,XR XR FEMUR LT from 11/16/2024 CR XR TIB/FIB LT from 11/16/2024 FINDINGS: BONES: No acute fracture is present. No bony destructive lesion is seen. JOINTS: Knee: The knee is normally aligned. The femoral tibial joint spaces are maintained. There is periarticular spurring. There is narrowing of the patellofemoral joint with periarticular spurring. A small joint effusion is seen. Hip: The hip joint spaces maintained. No significant periarticular spurring. Ankle: The ankle joint spaces are maintained. There is no talar dome defect. Ankle mortise is intact. No significant degenerative changes. SOFT TISSUE: Normal. IMPRESSION: Degenerative changes of the patellofemoral joint and small knee joint effusion. No evidence of fracture in the femur, knee or tibia and fibula. The ankle is unremarkable. The preliminary [facility] report was reviewed. DATA REPOSITORY: RADIATION DOSE DELIVERED:
[2024-11-16] MEDS: Acetaminophen 500 MG TAB PO (14:57)
[2024-11-16] MEDS: Dexamethasone 4 MG TAB PO (14:57)
[2024-11-16] MEDS: Lidocaine 5% Patch 1 PATCH TP (14:57)
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
[2024-11-16] MEDS: oxyCODONE 5 MG TAB PO (15:59)
--- NOTE | 2024-11-16 16:15 | DI.[facility]AD_ITS ---
PROCEDURE INFORMATION: Exam: XR Left Knee Exam date and time: 11/16/2024 3:13 PM Age: 54 years old Clinical indication: Knee; Left; Pain post fall TECHNIQUE: Imaging protocol: Radiologic exam of the left knee. Views: 3 views. COMPARISON: CR XR TIB/FIB LT 11/16/2024 3:11 PM FINDINGS: Bones/joints: There is a moderate-sized joint effusion. There is joint space narrowing of the patellofemoral articulation. Alignment is otherwise anatomic without evidence for fracture. Soft tissues: Normal. IMPRESSION: Joint effusion without evidence for fracture. Dictated and Authenticated by: Loretta Melendez MD. Orderin Debbie Hannah MD
--- NOTE | 2024-11-16 16:16 | DI.VRAD_ITS ---
PROCEDURE INFORMATION: Exam: XR Left Femur Exam date and time: 11/16/2024 3:09 PM Age: 54 years old Clinical indication: Thigh; Left; Pain post fall TECHNIQUE: Imaging protocol: Radiologic exam of the left femur. Views: 2 views. COMPARISON: No relevant prior studies available. FINDINGS: Bones/joints: Unremarkable. No acute fracture. Soft tissues: Unremarkable. IMPRESSION: No evidence for fracture. Dictated and Authenticated by: Loretta Melendez MD. Orderin Debbie Hannah MD
--- NOTE | 2024-11-16 17:39 | DI.VRAD_ITS ---
PROCEDURE INFORMATION: Exam: XR Left Tibia and Fibula Exam date and time: 11/16/2024 3:11 PM Age: 54 years old Clinical indication: Lower leg; Left; Pain post fall TECHNIQUE: Imaging protocol: Radiologic exam of the left tibia and fibula. Views: 2 views. COMPARISON: No relevant prior studies available. FINDINGS: Bones/joints: Four views of the left foreleg reveal no acute fracture or dislocation. There is mild loss of joint space in the medial compartment. There are small osteophytes along the margins of the medial and lateral compartments. There are also osteophytes associated with the patellofemoral compartment with an appearance suggesting mild tricompartmental osteoarthritis. Soft tissues: No gross focal soft tissue abnormality is demonstrated. IMPRESSION: No acute fracture or dislocation seen in the left foreleg. Dictated and Authenticated by: Malcolm Fortune MD. Orderin Debbie Hannah MD
--- NOTE | 2024-11-17 09:31 | NUR.NOTE ---
Nursing Note:Pt called stating that her discharge instructions said that she received 4 oxycodone to go home with but she reports that she did not receive this medications. I looked in the MAR and there is nothing documented to show that it was given to her. There is an order for the to go medication but it is not on the MAR to show not given/ given. I spoke with Brielle who was her initial provider and she does remember putting in the order and reported that Janet was the nurse who cared for this patient yesterday. Janet reported to Brielle that she received a critical patient and did not discharge this patient so she is unaware if the patient received the medication or not. I spoke with the pharmacy to see if they could help with seeing if the medication was dispensed and who it was dispensed by. [facility] (pharmacy) stated that we do not have the oxy to go. We had it for a little bit to cover the morphine to go, which was on back order. As soon as the morphine came in, we got rid of the oxy. Nu stated that the patient was not sent home with anything yesterday and she removed the charge for this medication on the patients chart this morning. Brielle is aware of the situation and is going to prescribe something to the patients pharmacy. I will call the patient and let her know what is happening.
== END 2024-11-16 17:16 | disposition home or self-care (01) ==
PROVIDERS: Emergency Provider Physician Assistant; PCP Nurse Practitioner
DX: M23.92 Unspecified internal derangement of left knee (principal); W19.XXXA Unspecified fall, initial encounter
CPT/HCPCS: 99283; 99284; 29505; 73552; 73562; 73590; J8540

== ENCOUNTER 2024-12-04 03:56 | Outpatient (CLI) | payer MEDICARE, MEDICAID, SELFPAY ==
--- NOTE | 2024-12-04 13:08 | DI.MRI_ITS ---
Exam(s) MR LOWER JOINT LT WO EXAM: MR LOWER JOINT LT WO CLINICAL HISTORY: left knee pain,M25.562. TECHNIQUE: Multiplanar multisequence MRI was performed. COMPARISON: CR,XR XR KNEE LT 3V AP,LAT,JULIANNA from 11/16/2024 FINDINGS: BONES: There is no fracture or contusion pattern. Spurring at the femoral condyles and tibial plateaus. Degenerative subchondral cysts noted in the medial femoral condyle. JOINTS: A small joint effusion is present. Articular cartilage: Patellofemoral joint: Articular severe cartilage loss and irregularity at the patellofemoral joint. Periarticular spurring. Medial femoral tibial joint: Severe cartilage loss and irregularity.. Degenerative subchondral cysts. Lateral femoral tibial joint: Articular cartilage shows mild irregularity. LIGAMENTS/TENDONS: Anterior Cruciate: Unremarkable. Posterior Cruciate: Unremarkable. Medial Collateral:Unremarkable. Lateral Collateral ligament complex: Unremarkable. Extensor mechanism: Unremarkable. Medial retinaculum: Unremarkable. Lateral retinaculum: Unremarkable. Popliteus: Unremarkable. MENISCI: The medial meniscus is peripherally displaced and shows intrasubstance signal. There is a tear at the posterior root. The lateral meniscus is somewhat diminutive. There is an abnormal low signal density noted adjacent to the anterior cruciate ligament which may represent a torn and displaced meniscal fragment. MUSCLES: Unremarkable. SOFT TISSUES: Small synovial cyst or ganglion noted posterior to the distal femoral metaphysis. 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 Tear at the root of the posterior horn of the medial meniscus. Tear of the posterior horn of the lateral meniscus with displaced fragment adjacent anterior cruciate ligament. DATA REPOSITORY:
== END 2024-12-04 04:16 ==
PROVIDERS: PCP Nurse Practitioner; Visit Provider Family Medicine
DX: S83.242A Other tear of medial meniscus, current injury, left knee, initial encounter (principal); X58.XXXA Exposure to other specified factors, initial encounter; M17.12 Unilateral primary osteoarthritis, left knee
CPT/HCPCS: 73721

== ENCOUNTER → 2024-12-11 10:05 | Outpatient (BNVA) | payer MEDICARE, MEDICAID, SELFPAY | PROVIDERS: PCP Nurse Practitioner; Referring Provider Nurse Practitioner; Visit Provider Student in an Organized Health Care Education/Training Program | DX: M17.12 Unilateral primary osteoarthritis, left knee (principal) | CPT/HCPCS: 99213; 20610; J1010 ==

== ENCOUNTER 2024-12-30 00:08 | Outpatient (CLI) | payer MEDICARE, SELFPAY ==
[2024-12-30 13:37] LABS: HCT 38.5 % (36.0-46.0); HGB 12.8 g/dL (11.2-15.7); MCH 29.1 pg (27.0-33.0); MCHC 33.2 % (32.0-36.0); MCV 88 fL (80-95); MPV 10.9 fL (8.0-11.0); Platelet Count 254 10^3/uL (130-400); RBC 4.40 10^6/uL (3.93-5.22); RDW 13.9 % (11.7-14.6); RDW-SD 44.7 fL; WBC 7.83 10^3/uL (4.4-10.8)
[2024-12-30 14:15] LABS: Cholesterol 228 mg/dL (<200); Triglyceride 76 mg/dL (<150)
[2024-12-30 14:21] LABS: ALT 26 U/L (14-59); AST 16 U/L (15-37); Estimated GFR 86.42 (mL/min/1.73m2)
== END 2024-12-30 00:09 | disposition home or self-care (01) ==
LOC: LBO 00:08
PROVIDERS: PCP Nurse Practitioner; Visit Provider Dermatology
DX: Z79.899 Other long term (current) drug therapy (principal); L40.1 Generalized pustular psoriasis
CPT/HCPCS: 36415; 85027; 82465; 82565; 84450; 84460; 84478